=== PATIENT | female | born 1960 | race Caucasian/White ===

== ENCOUNTER → 2017-11-22 16:10 | Outpatient (CLI) | payer OTHER, MEDICAID, SELFPAY ==
[2017-11-22 17:27] LABS: Basophils Percent Auto 1.1 % (0-2); Eosinophils Percent Auto 2.8 % (2-4); Hematocrit 37.3 % (36-46); Hemoglobin 11.7 g/dL (12.0-16.0); Lymphocytes Percent Auto 31.9 % (25-40); Mean Corpuscular HGB Conc 31.3 % (30-36); Mean Corpuscular Hemoglobin 22.9 PG (26-34); Mean Corpuscular Volume 73.1 fL (80-100); Monocytes Percent Auto 8.1 % (3-14); Neutrophils Absolute Auto 4400 /uL (3000-5900); Neutrophils Percent Auto 56.1 % (50-75); Platelet Count 358 X10^3/uL (150-400); Red Blood Cell Count 5.11 X10^6/uL (4.0-5.2); Red Cell Distribution Width 19.2 % (11.6-14.8); White Blood Cell Count 7.8 X10^3/uL (4.5-11.0)
[2017-11-22 17:31] LABS: Add Manual Diff / Slide Review SLIDE REVIEW
[2017-11-22 17:37] LABS: Alanine Aminotransferase 39 IU/L (9-52); Albumin 4.3 g/dL (3.5-5.0); Albumin Globulin Ratio 1.1 (1.0-2.8); Alkaline Phosphatase 89 U/L (38-126); Aspartate Aminotransferase 42 IU/L (14-36); BUN Creatinine Ratio 17.1 (6-22); Bilirubin Total 0.4 mg/dL (0.2-1.3); Blood Urea Nitrogen 12 mg/dL (7-17); Calcium 9.5 mg/dL (8.4-10.2); Carbon Dioxide 28 mmol/L (22-32); Chloride 99 mmol/L (98-107); Estimated Glomerular Filt Rate > 60.0 mL/min (>60); Glucose 93 mg/dL (70-100); HEMOLYSIS < 15 (0-50); Potassium 4.6 mmol/L (3.4-5.1); Sodium 141 mmol/L (137-145); Total Protein 8.3 g/dL (6.3-8.2)
[2017-11-22 18:03] LABS: Anisocytosis 1+; Microcytosis 1+
[2017-11-22 18:05] LABS: TSH w/ Reflex to FT4 3.85 uIU/mL (0.47-4.68)
== END ==
PROVIDERS: PCP Family Medicine; Visit Provider Family Medicine
DX: R53.83 Other fatigue (principal)
CPT/HCPCS: 36415; 80053; 84443; 85025

== ENCOUNTER → 2018-10-01 11:43 | Outpatient (CLI) | payer OTHER, MEDICAID, SELFPAY ==
--- NOTE | 2018-10-01 11:49 | DI.RAD.S_ITS ---
PROCEDURE: XR CHEST 2V INDICATIONS: cough, black, green sputum TECHNIQUE: 2 views of the chest were acquired. COMPARISON: [facility], CHEST 2 VIEW, 07/20/2017, 12:09. [facility], , CHEST 2 VIEW, 07/15/2009, 10:40. FINDINGS: Surgical changes and devices: None. Lungs and pleura: Lungs are clear. No pleural effusions or pneumothorax. Mediastinum: Mediastinal contours are normal. Heart size is normal. Bones and chest wall: No suspicious bony abnormalities. Soft tissues appear unremarkable. IMPRESSION: Normal for age, source of current cough symptoms is not seen. Dictated by: Shivam Hernandez M.D. on 10/01/2018 at 12:44 Approved by: Shivam Hernandez M.D. on 10/01/2018 at 12:44
[2018-10-01 12:57] LABS: Hematocrit 36.7 % (36-46); Hemoglobin 10.9 g/dL (12.0-16.0); Mean Corpuscular HGB Conc 29.7 % (30-36); Mean Corpuscular Hemoglobin 19.2 PG (26-34); Mean Corpuscular Volume 64.5 fL (80-100); Platelet Count 345 X10^3/uL (150-400); Red Blood Cell Count 5.69 X10^6/uL (4.0-5.2); Red Cell Distribution Width 19.2 % (11.6-14.8); White Blood Cell Count 5.6 X10^3/uL (4.5-11.0)
== END ==
PROVIDERS: PCP Family Medicine; Visit Provider Nurse Practitioner Family
DX: R05 Cough (principal); D50.0 Iron deficiency anemia secondary to blood loss (chronic)
CPT/HCPCS: 36415; 71046; 85027

== ENCOUNTER → 2018-10-29 12:47 | Outpatient (CLI) | payer OTHER, MEDICAID, SELFPAY ==
[2018-10-29 13:49] LABS: Add Manual Diff / Slide Review NO; Basophils Absolute Auto 100 /uL (0-100); Basophils Percent Auto 1.5 % (0-2); Eosinophils Absolute Auto 100 /uL (0-450); Hematocrit 35.4 % (36-46); Lymphocytes Absolute Auto 1500 /uL (1100-4500); Lymphocytes Percent Auto 29.8 % (25-40); Mean Corpuscular HGB Conc 30.9 % (30-36); Mean Corpuscular Hemoglobin 20.4 PG (26-34); Mean Corpuscular Volume 65.9 fL (80-100); Monocytes Absolute Auto 500 /uL (0-900); Monocytes Percent Auto 10.1 % (3-14); Neutrophils Absolute Auto 2900 /uL (1500-7000); Neutrophils Percent Auto 56.6 % (50-75); Platelet Count 323 X10^3/uL (150-400); Red Blood Cell Count 5.37 X10^6/uL (4.0-5.2); Red Cell Distribution Width 21.8 % (11.6-14.8); White Blood Cell Count 5.1 X10^3/uL (4.5-11.0)
[2018-10-29 14:18] LABS: Anisocytosis 2+
[2018-10-29 14:19] LABS: Hypochromasia 1+; Microcytosis 1+
[2018-10-29 15:19] LABS: HEMOLYSIS < 15 (0-50); Iron 22 ug/dL (37-170)
[2018-10-29 15:30] LABS: Percent Iron Saturation 4 % (15-50); Total Iron Binding Capacity 578 ug/dL (265-497); Transferrin 540 mg/dL (206-381)
== END ==
PROVIDERS: PCP Family Medicine; Visit Provider Family Medicine
DX: D50.0 Iron deficiency anemia secondary to blood loss (chronic) (principal); I10 Essential (primary) hypertension; K92.2 Gastrointestinal hemorrhage, unspecified; Z86.19 Personal history of other infectious and parasitic diseases
CPT/HCPCS: 36415; 83540; 83550; 85025; 87902

== ENCOUNTER → 2018-12-02 12:27 | Outpatient (CLI) | payer OTHER, MEDICAID, SELFPAY | PROVIDERS: PCP Family Medicine; Visit Provider Family Medicine | DX: Z86.19 Personal history of other infectious and parasitic diseases (principal) | CPT/HCPCS: 36415; 87522 ==

== ENCOUNTER → 2018-12-30 10:19 | Outpatient (CLI) | payer OTHER, MEDICAID, SELFPAY ==
--- NOTE | 2018-12-30 | DI.US.S_ITS ---
PROCEDURE: US ABDOMEN COMPLETE INDICATIONS: HEPATITIS C TECHNIQUE: Real-time scanning was performed of the abdominal and retroperitoneal organs, with image documentation. COMPARISON: None. FINDINGS: Liver: The liver measures 16.4 cm in length and demonstrates increased echogenicity. 2 simple cysts are visualized within the liver. A 2.2 cm cyst in the right lobe and a 1.5 cm cyst in the left lobe. Gallbladder: The gallbladder is surgically absent. Biliary ducts: Intrahepatic bile ducts are non-dilated. Extrahepatic bile duct caliber measures 0.6 mm. Normal is 6-7 mm or less in diameter, or 10 mm or less post-cholecystectomy. Pancreas: Visualized portions of the pancreas are sonographically normal. Spleen: Spleen is normal in size and homogeneous in echotexture. Kidneys: Kidneys are normal in size and echotexture. Right kidney measures 11.2 cm long; left kidney measures 11.2 cm long. No hydronephrosis or nephrolithiasis. No solid masses. Aorta: Visualized aorta is normal in caliber at less than 3 cm. Iliacs: Proximal common iliac arteries are normal in caliber at less than 2.5 cm. IVC: Intrahepatic inferior vena cava is patent. Miscellaneous: No free abdominal fluid. IMPRESSION: 1. Increased hepatic echogenicity suggesting either steatosis or early cirrhotic transformation. No suspicious hepatic lesions; however the increased hepatic echogenicity somewhat limits evaluation of the parenchyma. Dictated by: Julia Cantrell M.D. on 12/31/2018 at 12:50 Approved by: Julia Cantrell M.D. on 12/31/2018 at 12:52
== END ==
PROVIDERS: PCP Family Medicine; Visit Provider Physician Assistant
DX: B19.20 Unspecified viral hepatitis C without hepatic coma (principal); Z90.49 Acquired absence of other specified parts of digestive tract
CPT/HCPCS: 76700

== ENCOUNTER → 2019-02-10 10:45 | Outpatient (CLI) | payer OTHER, MEDICAID, SELFPAY ==
[2019-02-10 12:01] LABS: Add Manual Diff / Slide Review NO; Basophils Absolute Auto 100 /uL (0-100); Basophils Percent Auto 1.3 % (0-2); Eosinophils Absolute Auto 100 /uL (0-450); Eosinophils Percent Auto 2.5 % (2-4); Hematocrit 49.8 % (36-46); Lymphocytes Absolute Auto 1600 /uL (1100-4500); Lymphocytes Percent Auto 33.5 % (25-40); Mean Corpuscular HGB Conc 34.1 % (30-36); Mean Corpuscular Hemoglobin 30.6 PG (26-34); Mean Corpuscular Volume 89.6 fL (80-100); Monocytes Absolute Auto 500 /uL (0-900); Monocytes Percent Auto 11.3 % (3-14); Neutrophils Absolute Auto 2500 /uL (1500-7000); Neutrophils Percent Auto 51.4 % (50-75); Platelet Count 220 X10^3/uL (150-400); Red Blood Cell Count 5.55 X10^6/uL (4.0-5.2); Red Cell Distribution Width 14.6 % (11.6-14.8); White Blood Cell Count 4.8 X10^3/uL (4.5-11.0)
[2019-02-10 12:23] LABS: HEMOLYSIS < 15 (0-50); Iron 171 ug/dL (37-170)
[2019-02-10 12:35] LABS: Percent Iron Saturation 34 % (15-50); Total Iron Binding Capacity 499 ug/dL (265-497); Transferrin 389 mg/dL (206-381)
[2019-02-10 12:58] LABS: Ferritin 64.3 ng/mL (11.1-264)
== END ==
PROVIDERS: PCP Family Medicine; Visit Provider Physician Assistant
DX: D50.0 Iron deficiency anemia secondary to blood loss (chronic) (principal); B19.20 Unspecified viral hepatitis C without hepatic coma
CPT/HCPCS: 36415; 82728; 83540; 83550; 85025

== ENCOUNTER 2019-06-04 12:08 | Emergency (ER) | payer OTHER, MEDICAID, SELFPAY ==
[2019-06-04 12:10] VITALS: BP 165/94; PULSE 91; RESP 22; TEMP 36.9; O2SAT 97
--- NOTE | 2019-06-04 12:21 | DI.RAD.S_ITS ---
PROCEDURE: XR CHEST 1V INDICATIONS: chest pain TECHNIQUE: One view of the chest was acquired. COMPARISON: [facility], CR, XR CHEST 2V, 10/01/2018, 11:54. FINDINGS: Surgical changes and devices: None. Lungs and pleura: Lungs are clear. Aeration of the lungs is similar to the prior study. No pleural effusions or pneumothorax. Mediastinum: Mediastinal contours appear normal. Heart size is normal. There is aortic atherosclerosis. Bones and chest wall: No suspicious bony lesions. Overlying soft tissues appear unremarkable. IMPRESSION: Stable chest. No acute cardiopulmonary process is evident. Dictated by: Janes Ng M.D. on 06/04/2019 at 12:01 Approved by: Janes Ng M.D. on 06/04/2019 at 12:04
--- NOTE | 2019-06-04 12:26 | PC.NURSE ---
pt c/o high bp, was told to come to er for the past week by primary md, but has not had a ride. pt also suppose to be starting high bp medications. pt started having chest pain to right chest about 2 weeks ago.
[2019-06-04 12:30] VITALS: BP 152/88; PULSE 86; RESP 20; O2SAT 98
[2019-06-04 12:31] LABS: Add Manual Diff / Slide Review NO; Basophils Absolute Auto 100 /uL (0-100); Basophils Percent Auto 1.1 % (0-2); Eosinophils Absolute Auto 200 /uL (0-450); Eosinophils Percent Auto 2.3 % (2-4); Hematocrit 45.4 % (36-46); Hemoglobin 16.2 g/dL (12.0-16.0); Lymphocytes Absolute Auto 2300 /uL (1100-4500); Mean Corpuscular HGB Conc 35.8 % (30-36); Mean Corpuscular Hemoglobin 32.6 PG (26-34); Mean Corpuscular Volume 91.2 fL (80-100); Monocytes Absolute Auto 400 /uL (0-900); Monocytes Percent Auto 5.9 % (3-14); Neutrophils Absolute Auto 4300 /uL (1500-7000); Neutrophils Percent Auto 58.7 % (50-75); Platelet Count 251 X10^3/uL (150-400); Red Blood Cell Count 4.98 X10^6/uL (4.0-5.2); White Blood Cell Count 7.3 X10^3/uL (4.5-11.0)
[2019-06-04 12:33] LABS: INR 1.1 (0.9-1.3); Prothrombin Time 12.6 SECONDS (10.1-12.7)
[2019-06-04 12:35] LABS: PTT Partial Thromboplastin Tim 40 SECONDS (26.4-36.2)
[2019-06-04 12:41] LABS: Alanine Aminotransferase 27 IU/L (<35); Albumin Globulin Ratio 1.1 (1.0-2.8); Alkaline Phosphatase 97 U/L (38-126); Aspartate Aminotransferase 43 IU/L (14-36); BUN Creatinine Ratio 13.3 (6-22); Bilirubin Total 0.8 mg/dL (0.2-1.3); Blood Urea Nitrogen 8 mg/dL (7-17); Calcium 9.9 mg/dL (8.4-10.2); Carbon Dioxide 29 mmol/L (22-32); Chloride 102 mmol/L (98-107); Creatine Kinase 32 U/L (30-135); Estimated Glomerular Filt Rate > 60.0 mL/min (>60); Globulin 4.6 g/dL (1.7-4.1); Glucose 109 mg/dL (80-110); HEMOLYSIS < 15 (0-50); Lipase 90 U/L (23-300); Potassium 3.2 mmol/L (3.4-5.1); Sodium 144 mmol/L (137-145); Total Protein 9.6 g/dL (6.3-8.2)
--- NOTE | 2019-06-04 12:49 | ED_ITS ---
HPI - Chest Pain General Chief Complaint: Chest Pain Stated Complaint: high blood pressure,chest pain, head aches Time Seen by Provider: 06/04/19 12:16 Source: patient Mode of arrival: Ambulatory Limitations: no limitations History of Present Illness HPI narrative: Patient comes emergency department complaining of headache and elevated blood pressure, as well as right-sided chest pain. She states that the symptoms have been going on on and off for about the last week, and that her blood pressure has been elevated over the last month. She states she never had elevated blood pressure before. She has seen both her primary care physician today and her GI specialist a couple of weeks ago and both are aware of the blood pressure issue. She states she has not been started on anything for her blood pressures an outpatient this time. Patient states that she is not currently actively trying to stop smoking. She denies any recent illness. She has been on treatment for the last month for hepatitis, and is having daily bouts of diarrhea with this. As such, she has lost about 12 lb. However, she states that otherwise, she has not been uncomfortable treatment. Patient denies any other complaints at this time. She states deep breath, coughing, or movement make her chest pain worse. Related Data Home Medications Medication Instructions Recorded Confirmed multivitamin 1 tab PO DAILY 12/02/18 06/04/19 cimetidine 200 mg tablet 400 mg PO BEDTIME tab 06/04/19 06/04/19 clonazepam 0.5 - 1 mg PO BEDTIME 06/04/19 06/04/19 milnacipran [Savella] 50 mg PO DAILY 06/04/19 06/04/19 nortriptyline 50 mg PO DAILY 06/04/19 ranitidine HCl 150 mg PO DAILY 06/04/19 06/04/19 trazodone 300 mg PO BEDTIME 06/04/19 06/04/19 vitamin B comp and C no.3 15 mg-10 1 cap PO DAILY 06/04/19 06/04/19 mg-50 mg-5 mg-300 mg capsule Previous Rx's Medication Instructions Recorded Incontinence Supplies See Rx Instructions NOT APPLICABLE 01/11/18 PRN PRN #130 each omeprazole 20 mg capsule,delayed 20 mg PO DAILY #90 cap 10/29/18 release estradiol 1 mg tablet 1 mg PO DAILY #90 tab 02/14/19 ferrous sulfate 325 mg (65 mg 325 mg PO BID #60 tab 02/14/19 iron) tablet promethazine 25 mg tablet 25 mg PO DAILY PRN #30 tab 04/23/19 metoprolol succinate 50 mg PO DAILY #30 each 06/04/19 Allergies Allergy/AdvReac Type Severity Reaction Status Date / Time Penicillins Allergy Intermediate RASH Verified 06/04/19 11:50 ketorolac Allergy Unknown Verified 06/04/19 11:50 Review of Systems Review of Systems ROS Unobtainable: All systems reviewed & are unremarkable except as noted in HPI and below Constitutional Constitutional: Denies chills, Denies fatigue, Denies fever(s), Denies frequent falls, Reports headache(s), Denies lethargy and Denies weakness Eyes Eyes: Denies change in vision, Denies eye discharge, Denies irritation and Denies loss of vision ENT Ears, Nose, Mouth, and Throat: Denies change in voice, Denies dizziness, Reports headache(s), Denies neck pain, Denies sore throat and Denies throat swelling Cardiovascular Cardiovascular: Reports chest pain, Denies irregular heart rhythm, Denies lightheadedness, Denies palpitations, Denies dyspnea, Denies dyspnea on exertion and Denies orthopnea Respiratory Respiratory: Denies cough, Denies dyspnea, Denies dyspnea on exertion and Denies wheezing Gastrointestinal Gastrointestinal: Denies abdominal pain, Denies change in bowel habits, Denies diarrhea, Denies nausea and Denies vomiting Genitourinary Genitourinary: Denies hematuria, Denies flank pain, Denies urinary incontinence and Denies urinary urgency Musculoskeletal Musculoskeletal: Denies back pain, Denies muscle weakness, Denies neck pain, Denies numbness and Denies tingling Integumentary/Breasts Skin/Breast: Denies pruritus, Denies erythema, Denies rash and Denies wounds Neurologic Neurologic: Denies behavioral changes, Denies confusion, Denies dizziness, Denies frequent falls, Reports headache(s), Denies loss of vision, Denies numbness, Denies tingling and Denies weakness Psychiatric Psychiatric: Denies anxiety, Denies behavioral changes, Denies confusion, Denies depression, Denies homicidal ideation and Denies suicidal ideation Endocrine Endocrine: Denies fatigue, Denies flushing and Denies palpitations Hematologic/Lymphatic Hematologic/Lymphatic: Denies easy bruising Allergic/Immunologic Allergic/Immunologic: Denies urticaria, Denies throat swelling and Denies wheezing Patient History Medical History Adenomatous colon polyp (Acute ~07/2017) Anemia (Resolved Unknown) Anxiety (Chronic Unknown) Chronic pain syndrome (Chronic Unknown) Conversion disorder (Chronic Unknown) Depression (Chronic Unknown) Diaphragmatic hernia (Resolved Unknown) Fibromyalgia (Chronic Unknown) GERD (gastroesophageal reflux disease) (Chronic Unknown) Hepatitis C (Chronic Unknown) Hypertension (Chronic Unknown) Meningitis (Resolved 1994) Post traumatic stress disorder (PTSD) (Chronic Unknown) Smoker (Chronic) Surgical History S/P total abdominal hysterectomy and bilateral salpingo-oophorectomy (1991) Status post appendectomy (1975) Status post cholecystectomy (1998) Family History Mother Cancer Social History Smoking Status: Current some day smoker second hand exposure: Yes alcohol intake: never substance use type: does not use Smoking Status: Current some day smoker Substance Use Type: marijuana Exam Initial Vital Signs Initial Vital Signs: Vital Signs Temperature 98.4 F 06/04/19 12:10 Pulse Rate 91 H 06/04/19 12:10 Respiratory Rate 22 06/04/19 12:10 Blood Pressure 165/94 H 06/04/19 12:10 Pulse Oximetry 97 06/04/19 12:10 Const General: cooperative and well developed Nutritional Appearance: well nourished Orientation: alert, awake, oriented x3 and not confused Other: Patient smells very strongly of tobacco smoke. [facility] Head: normocephalic and atraumatic Ears: external ears normal Nose: external nose normal and No nasal discharge Face and sinus: face symmetric and No dry mucous membranes Mouth: oral mucosae normal and moist mucous membranes Teeth and gingiva: dentition normal Eyes General: appearance normal, both eyes and all related structures Eyelids: eyelids normal Conjunctivae: conjunctivae normal Sclera: sclerae normal Pupils: PERRL EOM: EOM intact bilaterally Neck Neck: normal visual inspection, trachea midline, No lymphadenopathy, No midline deformity and No JVD Lymphatic: No lymphedema Chest Chest: normal inspection of the chest Resp Effort & Inspection: normal respiratory effort, able to speak in complete sentences, no respiratory distress and no use of accessory muscles Auscultation: clear to auscultation bilaterally, no rales, no rhonchi and no wheezes Cardio Rate: regular rate Rhythm: regular rhythm Heart Sounds: no click, no gallops, no murmurs and no rubs Pulses: normal peripheral pulses GI Inspection: non-distended Palpation: soft, no hepatosplenomegaly, No guarding, No pulsatile mass and No tender Back/Spine/Pelvis Back: No CVA tenderness Cervical Spine: cervical ROM normal and No pain with cervical ROM Thoracic/Lumbar Spine: thoracic and lumbar spine normal to inspection Skin General: no rashes or lesions noted, No jaundice and No petechiae Neuro General: alert, oriented x3, gait normal and no focal motor deficits Speech: speech normal Extrem General: full ROM, no clubbing, cyanosis or edema, no pedal edema and no calf tenderness Psych Appearance: well kempt Mental Status: mental status grossly normal Attitude: cooperative Thought Content: normal and suicidality Judgment: judgment good Course Course Course Narrative: Patient was worked up with labs, EKG, and chest x-ray. She was treated with metoprolol and a small dose of morphine in the emergency department. Workup was unremarkable. Patient was found to be feeling better after treatment and her blood pressure was normal. I've discussed with her the importance of following up and of taking medication for her blood pressure. We have also discussed the usual indications for return. Patient will be prescribed metoprolol as an outpatient. She is advised to call her primary care physician's office as soon as possible to set up an appointment for follow-up. Orders Ordered: Discontinued Medications Metoprolol Succinate (Toprol Xl) 50 mg PO NOW ONE Stop: 06/04/19 12:46 Last Admin: 06/04/19 12:58 Dose: 50 mg Documented by: SCANAPO Morphine Sulfate (Morphine) 2 mg IV NOW ONE Stop: 06/04/19 12:46 Last Admin: 06/04/19 12:55 Dose: 2 mg Documented by: SCANAPO Vital Signs Vital signs: Vital Signs - 8 hr 06/04/19 12:10 Temperature 98.4 F Pulse Rate 91 H Respiratory Rate 22 Blood Pressure 165/94 H Pulse Oximetry 97 MDM - Chest Pain Medical Records Data Attestation: I reviewed the patient's medical records. Lab Data Attestation: I reviewed the patient's lab results. Result diagrams: 06/04/19 12:18 06/04/19 12:18 Labs: Lab Results 06/04/19 06/04/19 06/04/19 Range/Units 12:18 12:18 12:18 WBC 7.3 (4.5-11.0) X10^3/uL RBC 4.98 (4.0-5.2) X10^6/uL Hgb 16.2 H (12.0-16.0) g/dL Hct 45.4 (36-46) % MCV 91.2 (80-100) fL MCH 32.6 (26-34) PG MCHC 35.8 (30-36) % RDW 12.0 (11.6-14.8) % Plt Count 251 (150-400) X10^3/uL Neut % (Auto) 58.7 (50-75) % Lymph % (Auto) 32.0 (25-40) % Cross % (Auto) 5.9 (3-14) % Eos % (Auto) 2.3 (2-4) % Baso % (Auto) 1.1 (0-2) % Neut # (Auto) 4300 (9106-4479) /uL Lymph # (Auto) 2300 (4201-0246) /uL Cross # (Auto) 400 (0-900) /uL Eos # (Auto) 200 (0-450) /uL Baso # (Auto) 100 (0-100) /uL PT 12.6 (10.1-12.7) SECONDS INR 1.1 (0.9-1.3) APTT 40 H (26.4-36.2) SECONDS Sodium 144 (137-145) mmol/L Potassium 3.2 L (3.4-5.1) mmol/L Chloride 102 (98-107) mmol/L Carbon Dioxide 29 (22-32) mmol/L BUN 8 (7-17) mg/dL Creatinine 0.60 (0.52-1.04) mg/dL Estimated GFR > 60.0 (>60) mL/min BUN/Creatinine Ratio 13.3 (6-22) Glucose 109 (80-110) mg/dL Calcium 9.9 (8.4-10.2) mg/dL Total Bilirubin 0.8 (0.2-1.3) mg/dL AST 43 H (14-36) IU/L ALT 27 (<35) IU/L Alkaline Phosphatase 97 (38-126) U/L Total Creatine Kinase 32 (30-135) U/L CK-MB (CK-2) TNP CK-MB (CK-2) Rel Index TNP Troponin I < 0.012 (0.01-0.034) ng/mL Total Protein 9.6 H (6.3-8.2) g/dL Albumin 5.0 (3.5-5.0) g/dL Globulin 4.6 H (1.7-4.1) g/dL Albumin/Globulin Ratio 1.1 (1.0-2.8) Lipase 90 (23-300) U/L Imaging Data Chest x-ray: Radiologist's impression: PROCEDURE: XR CHEST 1V INDICATIONS: chest pain TECHNIQUE: One view of the chest was acquired. COMPARISON: [facility], , XR CHEST 2V, 10/01/2018, 11:54. FINDINGS: Surgical changes and devices: None. Lungs and pleura: Lungs are clear. Aeration of the lungs is similar to the prior study. No pleural effusions or pneumothorax. Mediastinum: Mediastinal contours appear normal. Heart size is normal. There is aortic atherosclerosis. Bones and chest wall: No suspicious bony lesions. Overlying soft tissues appear unremarkable. IMPRESSION: Stable chest. No acute cardiopulmonary process is evident. Dictated by: Janes Ng M.D. on 06/04/2019 at 12:01 Approved by: Janes Ng M.D. on 06/04/2019 at 12:04 ECG Data Attestation: I personally reviewed and interpreted this ECG as follows: (See be low) Interpretation: Twelve lead EKG performed June 04, 2019 at 12:54 p.m., as follows: Regular ventricular rhythm with a rate of 84 beats per minute NM intervals 173 milliseconds QRS duration 86 millisecond QTC interval 430 milliseconds Discharge Plan Departure Patient Disposition: Home Clinical Impression: Essential hypertension Discharge Date/Time: 06/04/19 14:09 Instructions: DI for High Blood Pressure Activity Restrictions/Additional Instructions: Your labs look good. It is very important that you follow-up with your doctor regarding your high blood pressure. For now, please start the medication that has been prescribed for you, and talk to your doctor about a plan to quit smoking. Please also talk to your GI specialist about the liver medication your on to see if this could possibly be responsible for your high blood pressure. Your prescription has been electronically transmitted to [facility] in [place]. Prescriptions: New metoprolol succinate 50 mg capsule,sprinkle,ER 24hr 50 mg PO DAILY Qty: 30 RF: 0 No Action Incontinence Supplies See Rx Instructions Not Applicable PRN PRN (Reason: incontinence) Qty: 130 RF: 0 estradiol 1 mg tablet 1 mg PO DAILY Qty: 90 RF: 0 ferrous sulfate 325 mg (65 mg iron) tablet 325 mg PO BID Qty: 60 RF: 2 promethazine 25 mg tablet 25 mg PO DAILY PRN (Reason: nausea and vomiting) Qty: 30 RF: 2 omeprazole 20 mg capsule,delayed release(DR/EC) 20 mg PO DAILY Qty: 90 RF: 3 multivitamin tablet 1 tab PO DAILY RF: 0 B Complex Plus Vitamin C 40-93-11-5-300 mg capsule 1 cap PO DAILY RF: 0 cimetidine [Tagamet HB] 200 mg tablet 400 mg PO BEDTIME RF: 0 ranitidine HCl 150 mg tablet 150 mg PO DAILY RF: 0 nortriptyline 50 mg capsule 50 mg PO DAILY RF: 0 Savella 50 mg tablet 50 mg PO DAILY RF: 0 clonazepam 0.5 mg tablet 0.5 - 1 mg PO BEDTIME RF: 0 trazodone 300 mg tablet 300 mg PO BEDTIME RF: 0 Referrals: Desiree Gilman, [Primary Care Provider] -
[2019-06-04 12:52] LABS: Troponin I < 0.012 ng/mL (0.01-0.034)
[2019-06-04] MEDS: MORPHINE 2 MG/ML INJ IV (12:55)
[2019-06-04] MEDS: METOPROLOL ER 50 MG TABLET PO (12:58)
[2019-06-04 13:00] VITALS: BP 132/90; PULSE 82; RESP 15; O2SAT 97
[2019-06-04 13:22] VITALS: BP 132/90; PULSE 83
[2019-06-04 13:33] VITALS: BP 135/76; PULSE 81; RESP 16; O2SAT 100
== END 2019-06-04 14:09 | disposition home or self-care (01) ==
PROVIDERS: Emergency Provider Emergency Medicine; PCP Family Medicine
DX: I10 Essential (primary) hypertension (principal)
CPT/HCPCS: 36415; 71045; 80053; 82550; 83690; 84484; 85025; 85610; 85730; 93005; 93010; 96374; 99284; 99285; J2270

== ENCOUNTER → 2019-06-19 10:25 | Outpatient (CLI) | payer OTHER, MEDICAID, SELFPAY ==
--- NOTE | 2019-06-19 | DI.US.S_ITS ---
PROCEDURE: US ABDOMEN LIMITED INDICATIONS: UNSPECIFIED VIRAL HEP C W/O HEPATIC COMA TECHNIQUE: Real-time scanning was performed of the abdominal and retroperitoneal organs, with image documentation. COMPARISON: [facility], CT, ABDOMEN/PELVIS WITH CONTRAST, 07/09/2009, 16:28. [facility], US, US ABDOMEN COMPLETE, 12/30/2018, 10:54. FINDINGS: Liver: Liver is normal in size. Multifocal areas of hypoechogenicity are identified measuring 14 x 20 x 15 mm and 20 x 19 x 23 mm. Gallbladder: Gallbladder has been removed. Biliary ducts: Intrahepatic bile ducts are non-dilated. Extrahepatic bile duct caliber measures 6.7 mm. Normal is 6-7 mm or less in diameter, or 10 mm or less post-cholecystectomy. Pancreas: Visualized portions of the pancreas are sonographically normal. Visualized portion of the pancreatic duct appears minimally prominent. However this appears relatively unchanged compared to 12/30/18. IMPRESSION: 1. Hepatic cysts. 2. Partially visualized pancreatic duct appears minimally prominent, unchanged. Recommend correlation to laboratory values. Dictated by: Andra Monroy M.D. on 06/19/2019 at 17:43 Approved by: Andra Monroy M.D. on 06/19/2019 at 17:45
== END ==
PROVIDERS: Family Provider Family Medicine; PCP Family Medicine; Visit Provider Physician Assistant
DX: B19.20 Unspecified viral hepatitis C without hepatic coma (principal); K76.89 Other specified diseases of liver; Z90.49 Acquired absence of other specified parts of digestive tract
CPT/HCPCS: 76705

== ENCOUNTER → 2019-07-30 11:49 | Outpatient (CLI) | payer OTHER, MEDICAID, SELFPAY ==
--- NOTE | 2019-07-30 11:51 | DI.RAD.S_ITS ---
PROCEDURE: XR CERVICAL SPINE 2V OR 3V INDICATIONS: Neck pain TECHNIQUE: 3 view(s) of the cervical spine were acquired. COMPARISON: None. FINDINGS: Bones: No fractures or dislocations to the C7 level. The lateral masses of C1 appear intact on the odontoid view. No suspicious bony lesions. Multilevel degenerative endplate sclerosis and spurring. Diffuse facet arthropathy. No definite disc space narrowing. Minimal levocurvature Soft tissues: No prevertebral soft tissue swelling. IMPRESSION: Minimal cervical spondylosis and levocurvature Dictated by: Abhinav Renae M.D. on 07/30/2019 at 16:33 Approved by: Abhinav Renae M.D. on 07/30/2019 at 16:34
== END ==
PROVIDERS: Family Provider Student in an Organized Health Care Education/Training Program; PCP Student in an Organized Health Care Education/Training Program; Referring Provider Student in an Organized Health Care Education/Training Program; Visit Provider Student in an Organized Health Care Education/Training Program
DX: M54.2 Cervicalgia (principal)
CPT/HCPCS: 72040

== ENCOUNTER → 2019-09-12 14:37 | Outpatient (CLI) | payer OTHER, MEDICAID, SELFPAY ==
[2019-09-12 18:15] LABS: Influenza A - CEPHEID Flu A NEGATIVE (NEGATIVE); Influenza B - CEPHEID Flu B NEGATIVE (NEGATIVE)
[2019-09-14 05:38] LABS: COVID19 Sendout Not Detected (Not Detected)
== END ==
PROVIDERS: Family Provider Student in an Organized Health Care Education/Training Program; PCP Student in an Organized Health Care Education/Training Program; Visit Provider Family Medicine
DX: R69 Illness, unspecified (principal)
CPT/HCPCS: 87502; 87635

== ENCOUNTER → 2019-09-12 14:40 | Outpatient (CLI) | payer OTHER, MEDICAID, SELFPAY ==
--- NOTE | 2019-09-12 14:43 | DI.RAD.S_ITS ---
PROCEDURE: XR CHEST 2V INDICATIONS: cough, fever, not improving after 1 week of abx TECHNIQUE: 2 views of the chest were acquired. COMPARISON: [facility], CR, XR CHEST 1V, 06/04/2019, 12:27. FINDINGS: Surgical changes and devices: Right upper quadrant clips. Lungs and pleura: Scattered subsegmental atelectasis and/or scarring. No focal consolidation. No pleural effusions or pneumothorax. Mediastinum: Mediastinal contours are normal. Heart size is normal. Bones and chest wall: No suspicious bony abnormalities. Soft tissues appear unremarkable. IMPRESSION: No acute consolidation Dictated by: Abhinav Renae M.D. on 09/12/2019 at 15:16 Approved by: Abhinav Renae M.D. on 09/12/2019 at 15:23
== END ==
PROVIDERS: Family Provider Student in an Organized Health Care Education/Training Program; PCP Student in an Organized Health Care Education/Training Program; Referring Provider Family Medicine; Visit Provider Family Medicine
DX: R05 Cough (principal); R50.9 Fever, unspecified; R69 Illness, unspecified
CPT/HCPCS: 71046; 87502; 87635

== ENCOUNTER → 2020-02-18 11:51 | Outpatient (CLI) | payer OTHER, MEDICAID, SELFPAY ==
[2020-02-18 12:21] LABS: Alanine Aminotransferase 9 IU/L (<35); Albumin 4.6 g/dL (3.5-5.0); Albumin Globulin Ratio 1.2 (1.0-2.8); Alkaline Phosphatase 66 U/L (38-126); Aspartate Aminotransferase 20 IU/L (14-36); BUN Creatinine Ratio 15.2 (6-22); Bilirubin Total 0.4 mg/dL (0.2-1.3); Blood Urea Nitrogen 10 mg/dL (7-17); Calcium 9.4 mg/dL (8.4-10.2); Carbon Dioxide 29 mmol/L (22-32); Chloride 103 mmol/L (98-107); Estimated Glomerular Filt Rate > 60.0 mL/min (>60); Glucose 96 mg/dL (80-110); HEMOLYSIS < 15 (0-50); Potassium 3.8 mmol/L (3.4-5.1); Sodium 141 mmol/L (137-145); Total Protein 8.6 g/dL (6.3-8.2)
== END ==
PROVIDERS: Family Provider Student in an Organized Health Care Education/Training Program; PCP Student in an Organized Health Care Education/Training Program; Referring Provider Student in an Organized Health Care Education/Training Program; Visit Provider Student in an Organized Health Care Education/Training Program
DX: B19.20 Unspecified viral hepatitis C without hepatic coma (principal); N14.1 Nephropathy induced by other drugs, medicaments and biological substances; T50.8X5A Adverse effect of diagnostic agents, initial encounter
CPT/HCPCS: 36415; 80053

== ENCOUNTER → 2020-03-02 10:58 | Outpatient (CLI) | payer OTHER, MEDICAID, SELFPAY ==
--- NOTE | 2020-03-02 11:16 | DI.MG.S_ITS ---
Patient Name: LISS LAI date: 1960 Sex: F Attending Physician: Reva Indications: Date: 03/02/2020 11:07 At the request of: JEAN BUSTOS Procedure: MM screening mammo BI BILATERAL DIGITAL SCREENING MAMMOGRAM 3D/2D WITH CAD: 03/02/2020 CLINICAL: Routine screening. Comparison is made to exams dated: 03/09/2017 mammogram, 02/02/2015 mammogram, 12/02/2013 mammogram, and 02/17/2011 mammogram - [facility]. There are scattered fibroglandular elements in both breasts. Current study was also evaluated with a Computer Aided Detection (CAD) system. No significant masses, calcifications, or other findings are seen in either breast. There has been no significant interval change. IMPRESSION: NEGATIVE There is no mammographic evidence of malignancy. A 1 year screening mammogram is recommended. This exam was interpreted at Station ID: [id number]. NOTE: For mammograms, a report in lay terms will be sent to the patient. Approximately 15% of breast malignancies will not be visualized mammographically. In the management of a palpable breast mass, a negative mammogram must not discourage biopsy of a clinically suspicious lesion. Electronically Signed By: Clement desai/che:03/02/2020 17:47:46 letter sent: Normal Exam ACR BI-RADS Category 1: Negative [id number]
--- NOTE | 2020-03-02 11:28 | DI.CT.S_ITS ---
PROCEDURE: CT ANGIO UE LT INDICATIONS: Left arm pain TECHNIQUE: After the administration of intravenous contrast, 2.5 mm sections acquired from the aortic arch through the symptomatic arm, with optional delayed image acquisition from the elbows to the fingers. 3-dimensional maximum intensity projection (MIP) coronal and sagital reformats, and/or 3-dimensional volume rendering reformatting was then performed. For radiation dose reduction, the following was used: automated exposure control. COMPARISON: None. FINDINGS: Image quality: Excellent. The bones appear intact. No focal osseous destruction identified. There is mild skin thickening overlying the tip of the olecranon . However this finding technically nonspecific. The remaining subcutaneous soft tissues appear grossly intact. The muscles appear unremarkable. The vessels appear contrast opacified and grossly unremarkable to the level of the distal radial and ulnar arteries. No soft tissue gas is seen. No abscess identified. IMPRESSION: Overall, grossly unremarkable examination. Mild skin thickening over the tip of the olecranon however this could be chronic. Please correlate clinically Dictated by: Abhinav Renae M.D. on 03/02/2020 at 13:43 Approved by: Abhinav Renae M.D. on 03/02/2020 at 13:50
== END ==
PROVIDERS: Family Provider Student in an Organized Health Care Education/Training Program; PCP Student in an Organized Health Care Education/Training Program; Referring Provider Student in an Organized Health Care Education/Training Program; Visit Provider Student in an Organized Health Care Education/Training Program
DX: Z12.31 Encounter for screening mammogram for malignant neoplasm of breast (principal); M79.602 Pain in left arm
CPT/HCPCS: 73206; 77063; 77067; Q9967

== ENCOUNTER → 2020-04-01 12:17 | Outpatient (CLI) | payer OTHER, MEDICAID, SELFPAY ==
[2020-04-01 14:19] LABS: Add Manual Diff / Slide Review NO; Basophils Absolute Auto 100 /uL (0-100); Basophils Percent Auto 0.9 % (0-2); Eosinophils Absolute Auto 100 /uL (0-450); Eosinophils Percent Auto 1.3 % (2-4); Hematocrit 45.3 % (36-46); Hemoglobin 15.5 g/dL (12.0-16.0); Lymphocytes Absolute Auto 2200 /uL (1100-4500); Lymphocytes Percent Auto 28.1 % (25-40); Mean Corpuscular HGB Conc 34.3 % (30-36); Mean Corpuscular Hemoglobin 29.3 PG (26-34); Mean Corpuscular Volume 85.4 fL (80-100); Monocytes Absolute Auto 500 /uL (0-900); Monocytes Percent Auto 6.7 % (3-14); Neutrophils Absolute Auto 4800 /uL (1500-7000); Platelet Count 306 X10^3/uL (150-400); Red Cell Distribution Width 13.7 % (11.6-14.8); White Blood Cell Count 7.7 X10^3/uL (4.5-11.0)
[2020-04-01 14:33] LABS: Alanine Aminotransferase 11 IU/L (<35); Albumin 4.8 g/dL (3.5-5.0); Albumin Globulin Ratio 1.3 (1.0-2.8); Alkaline Phosphatase 74 U/L (38-126); Aspartate Aminotransferase 31 IU/L (14-36); BUN Creatinine Ratio 19.6 (6-22); Bilirubin Total 0.8 mg/dL (0.2-1.3); Blood Urea Nitrogen 10 mg/dL (7-17); Calcium 7.8 mg/dL (8.4-10.2); Carbon Dioxide 28 mmol/L (22-32); Chloride 102 mmol/L (98-107); Estimated Glomerular Filt Rate > 60.0 mL/min (>60); Globulin 3.8 g/dL (1.7-4.1); Glucose 84 mg/dL (80-110); HEMOLYSIS 49 (0-50); Potassium 3.2 mmol/L (3.4-5.1); Sodium 142 mmol/L (137-145); Total Protein 8.6 g/dL (6.3-8.2)
[2020-04-01 16:04] LABS: Lipase 53 U/L (23-300)
[2020-04-02 13:08] LABS: COVID19 Sendout Not Detected (Not Detect)
== END ==
PROVIDERS: Family Provider Student in an Organized Health Care Education/Training Program; PCP Student in an Organized Health Care Education/Training Program; Referring Provider Physician Assistant; Visit Provider Physician Assistant
DX: R19.7 Diarrhea, unspecified (principal); R50.9 Fever, unspecified; Z11.59 Encounter for screening for other viral diseases
CPT/HCPCS: 36415; 80053; 83690; 85025; 87635

== ENCOUNTER → 2020-04-17 11:31 | Outpatient (CLI) | payer OTHER, MEDICAID, SELFPAY | PROVIDERS: Family Provider Student in an Organized Health Care Education/Training Program; PCP Student in an Organized Health Care Education/Training Program; Referring Provider Student in an Organized Health Care Education/Training Program; Visit Provider Student in an Organized Health Care Education/Training Program | DX: R19.7 Diarrhea, unspecified (principal) | CPT/HCPCS: 87045; 87899 ==

== ENCOUNTER → 2020-09-07 13:55 | Outpatient (CLI) | payer OTHER, MEDICAID, SELFPAY ==
[2020-09-07 15:23] LABS: BUN Creatinine Ratio 13.6 (6-22); Blood Urea Nitrogen 9 mg/dL (7-17); Carbon Dioxide 28 mmol/L (22-32); Chloride 102 mmol/L (98-107); Estimated Glomerular Filt Rate > 60.0 mL/min (>60); Glucose 99 mg/dL (80-110); HEMOLYSIS < 15 (0-50); Potassium 3.6 mmol/L (3.4-5.1); Sodium 140 mmol/L (137-145)
[2020-09-07 15:26] LABS: C-Reactive Protein Quant < 0.5 mg/dL (<1.0)
[2020-09-07 15:49] LABS: TSH w/ Reflex to FT4 1.88 uIU/mL (0.47-4.68)
[2020-09-09 16:37] LABS: HIV 1 & 2 Ab/Ag 4th Gen Combo NEGATIVE (NEGATIVE)
== END ==
PROVIDERS: Family Provider Student in an Organized Health Care Education/Training Program; PCP Student in an Organized Health Care Education/Training Program; Referring Provider Student in an Organized Health Care Education/Training Program; Visit Provider Student in an Organized Health Care Education/Training Program
DX: K52.9 Noninfective gastroenteritis and colitis, unspecified (principal)
CPT/HCPCS: 36415; 80048; 84443; 86140; 87389

== ENCOUNTER 2021-03-07 14:08 | Emergency (ER) | payer OTHER, MEDICAID, SELFPAY ==
[2021-03-07] VITALS (10 sets, daily range): BP systolic 137–161; BP diastolic 66–93; PULSE 66–76; RESP 20–35; TEMP 36.3; O2SAT 87–100
[2021-03-07 14:38] LABS: Add Manual Diff / Slide Review NO; Basophils Absolute Auto 100 /uL (0-100); Basophils Percent Auto 0.8 % (0-2); Eosinophils Absolute Auto 0 /uL (0-450); Eosinophils Percent Auto 0.3 % (2-4); Hematocrit 45.3 % (36-46); Hemoglobin 15.1 g/dL (12.0-16.0); Lymphocytes Absolute Auto 2800 /uL (1100-4500); Lymphocytes Percent Auto 26.9 % (25-40); Mean Corpuscular HGB Conc 33.3 % (30-36); Mean Corpuscular Hemoglobin 27.2 PG (26-34); Mean Corpuscular Volume 81.9 fL (80-100); Monocytes Absolute Auto 800 /uL (0-900); Monocytes Percent Auto 7.4 % (3-14); Neutrophils Absolute Auto 6700 /uL (1500-7000); Neutrophils Percent Auto 64.6 % (50-75); Platelet Count 306 X10^3/uL (150-400); Red Blood Cell Count 5.53 X10^6/uL (4.0-5.2); Red Cell Distribution Width 14.2 % (11.6-14.8); White Blood Cell Count 10.4 X10^3/uL (4.5-11.0)
[2021-03-07] MEDS: ONDANSETRON 4 MG/2 ML INJ IV (14:38)
[2021-03-07] MEDS: SODIUM CHLORIDE 0.9% 1,000 ML 1000 ML IV (14:38)
--- NOTE | 2021-03-07 14:51 | ED.NAVMDI ---
HPI - Nausea/Vomiting/Diarrhea General Chief complaint: Nausea/Vomiting/Diarrhea Stated complaint: Faint, hot/cold, weak, hurt everywhere,vomiting Time Seen by Provider: 03/07/21 14:23 Source: patient Mode of arrival: Ambulatory History of Present Illness HPI Narrative: Patient is a 60-year-old female. Is here for evaluation of feeling both hot and cold at the same time, weak, feeling faint, fogginess in her head, and pain everywhere. Also having nausea and vomiting. Has not tried anything for symptoms prior to arrival. The symptoms been going on for the past couple days except for the diarrhea which is been going on since February. Contacted her primary doctor this morning who advised her to come to the emergency department for evaluation. Related Data Home Medications Medication Instructions Recorded Confirmed multivitamin 1 tab PO DAILY 12/02/18 09/07/20 vitamin B comp and C no.3 15 mg-10 1 cap PO DAILY 06/04/19 09/07/20 mg-50 mg-5 mg-300 mg capsule (B Complex Plus Vitamin C) Previous Rx's Medication Instructions Recorded Incontinence Supplies See Rx Instructions NOT APPLICABLE 01/11/18 PRN PRN #130 each rubber gloves #200 each 09/02/19 metoprolol succinate 50 mg 50 mg PO DAILY #90 tab 02/10/20 tablet,extended release 24 hr estradiol 1 mg tablet 1 mg PO DAILY #90 tab 08/12/20 methocarbamol 750 mg tablet 750 mg PO TID PRN #90 tab 08/12/20 trazodone 300 mg tablet 300 mg PO BEDTIME #90 tab 10/11/20 promethazine 25 mg tablet 25 mg PO DAILY PRN #30 tab 10/12/20 omeprazole 20 mg capsule,delayed 20 mg PO DAILY #90 cap 11/08/20 release duloxetine 30 mg capsule,delayed 30 mg PO DAILY #90 cap 11/16/20 release clonazepam 1 mg tablet 1 mg PO BEDTIME PRN #30 tab 03/07/21 Allergies Allergy/AdvReac Type Severity Reaction Status Date / Time Penicillins Allergy Intermediate RASH Verified 03/07/21 16:45 tizanidine Allergy Intermediate Hives Verified 03/07/21 16:45 ketorolac Allergy Unknown Verified 03/07/21 16:45 clindamycin AdvReac Severe Nausea and Verified 03/07/21 16:45 vomiting Review of Systems Review of Systems ROS Unobtainable: All systems reviewed & are unremarkable except as noted in HPI and below Constitutional Constitutional: Reports chills, Reports fatigue and Reports weakness Eyes Eyes: Reports system reviewed and no additional complaints, except as documented ENT Ears, Nose, Mouth, and Throat: Denies vertigo, Reports dizziness, Reports disequilibrium, Reports sinus pressure and Denies sore throat Cardiovascular Cardiovascular: Reports as per HPI, Reports system reviewed and no additional complaints, except as documented, Denies chest pain and Reports dyspnea (This is baseline for her) Respiratory Respiratory: Reports system reviewed and no additional complaints, except as documented, Denies cough and Reports dyspnea (This is baseline for her) Gastrointestinal Gastrointestinal: Reports system reviewed and no additional complaints, except as documented and Reports diarrhea (Not new for her) Genitourinary Genitourinary: Reports system reviewed and no additional complaints, except as documented Musculoskeletal Musculoskeletal: Reports back pain and Reports myalgias Integumentary/Breasts Skin/Breast: Reports system reviewed and no additional complaints, except as documented Neurologic Neurologic: Denies vertigo, Reports dizziness, Reports disequilibrium and Reports weakness Psychiatric Psychiatric: Reports system reviewed and no additional complaints, except as documented Endocrine Endocrine: Reports fatigue Hematologic/Lymphatic On Anticoagulants: No Allergic/Immunologic Allergic/Immunologic: Reports system reviewed and no additional complaints, except as documented Patient History Medical History (Updated 03/07/21 @ 16:33 by Ronnie Haider DO) Adenomatous colon polyp (~07/2017) Anemia (Unknown) Anxiety (Unknown) Chronic pain syndrome (Unknown) Conversion disorder (Unknown) Depression (Unknown) Diaphragmatic hernia (Unknown) Fibromyalgia (Unknown) GERD (gastroesophageal reflux disease) (Unknown) Hepatitis C (Unknown) Hypertension (Unknown) Meningitis (1994) Post traumatic stress disorder (PTSD) (Unknown) Smoker Tobacco abuse Surgical History S/P total abdominal hysterectomy and bilateral salpingo-oophorectomy (1991) Status post appendectomy (1975) Status post cholecystectomy (1998) Family History Mother Cancer Social History Smoking Status: Current every day smoker second hand exposure: Yes alcohol intake: never substance use type: does not use Smoking Status: Current every day smoker Substance Use Type: marijuana Exam Initial Vital Signs Initial Vital Signs: Vital Signs Temperature 97.4 F L 03/07/21 14:15 Pulse Rate 76 03/07/21 14:15 Respiratory Rate 22 03/07/21 14:15 Blood Pressure 146/76 H 03/07/21 14:15 Pulse Oximetry 94 03/07/21 14:15 Const General: disheveled and No ill appearing HENMT Head: normal to inspection and normocephalic Eyes General: appearance normal, both eyes and all related structures Neck Neck: normal visual inspection Chest Chest: normal inspection of the chest Resp Effort & Inspection: not labored and tachypneic Auscultation: clear to auscultation bilaterally Cardio Rate: regular rate Rhythm: regular rhythm GI Inspection: normal to inspection Palpation: soft and No tender General: bimanual renal exam normal bilaterally Back/Spine/Pelvis Back: normal to inspection Skin Lesions: no lesions Rashes: no rashes Neuro General: patient alert, patient awake and moves all extremities Cognition: normal cognition Speech: speech normal Extrem General: capillary refill normal and No edema Psych Appearance: grossly normal and well kempt Course Orders Ordered: ED Orders 03/07/21 14:30 COVID19 -Nasal swab/Pre-Proc Stat Complete Blood Count AUTO DIFF Stat Comprehensive Metabolic Panel Stat Lipase Stat NT-proBNP (BNP-Adult 18+) Stat Troponin & CK Cardiac Panel Stat 03/07/21 15:06 XR chest 1V Stat Discontinued Medications Acetaminophen (Acetaminophen 325 Mg Tablet) 650 mg PO NOW ONE Stop: 03/07/21 15:34 Last Admin: 03/07/21 15:44 Dose: 650 mg Documented by: SHONA Sodium Chloride (Normal Saline 0.9%) 1,000 mls @ 1,000 mls/hr IV BOLUS ONE Stop: 03/07/21 15:32 Last Infusion: 03/07/21 15:46 Dose: 0 mls/hr Documented by: Admin: 03/07/21 14:38 Dose: 1,000 mls/hr Documented by: ERASTO Ondansetron HCl (Ondansetron 4 Mg/2 Ml Inj) 4 mg IV NOW ONE Stop: 03/07/21 14:32 Last Admin: 03/07/21 14:38 Dose: 4 mg Documented by: KSCHERE Vital Signs Vital signs: Vital Signs - 8 hr 03/07/21 14:15 03/07/21 14:32 03/07/21 14:45 Temperature 97.4 F L Pulse Rate 76 73 69 Respiratory Rate 22 33 H 32 H Blood Pressure 146/76 H 161/85 H Pulse Oximetry 94 94 89 L 03/07/21 15:00 03/07/21 15:15 03/07/21 15:30 Temperature Pulse Rate 71 73 67 Respiratory Rate 32 H 35 H 28 H Blood Pressure 155/80 H 157/93 H 140/84 Pulse Oximetry 87 L 100 99 03/07/21 15:45 03/07/21 16:00 03/07/21 16:15 Temperature Pulse Rate 68 66 73 Respiratory Rate 22 20 21 Blood Pressure 151/83 H 137/66 139/71 Pulse Oximetry 100 100 99 03/07/21 16:30 Temperature Pulse Rate 73 Respiratory Rate 22 Blood Pressure 156/82 H Pulse Oximetry 99 MDM - Nausea/Vomiting/Diarrhea Lab Data Attestation: I reviewed the patient's lab results. Result diagrams: 03/07/21 14:30 03/07/21 14:30 Labs: Lab Results 03/07/21 03/07/21 03/07/21 Range/Units 14:30 14:30 14:30 WBC 10.4 (4.5-11.0) X10^3/uL RBC 5.53 H (4.0-5.2) X10^6/uL Hgb 15.1 (12.0-16.0) g/dL Hct 45.3 (36-46) % MCV 81.9 (80-100) fL MCH 27.2 (26-34) PG MCHC 33.3 (30-36) % RDW 14.2 (11.6-14.8) % Plt Count 306 (150-400) X10^3/uL Neut % (Auto) 64.6 (50-75) % Lymph % (Auto) 26.9 (25-40) % Patrick % (Auto) 7.4 (3-14) % Eos % (Auto) 0.3 L (2-4) % Baso % (Auto) 0.8 (0-2) % Neut # (Auto) 6700 (1594-1698) /uL Lymph # (Auto) 2800 (2514-1477) /uL Patrick # (Auto) 800 (0-900) /uL Eos # (Auto) 0 (0-450) /uL Baso # (Auto) 100 (0-100) /uL Sodium 142 (137-145) mmol/L Potassium 3.1 L (3.4-5.1) mmol/L Chloride 103 (98-107) mmol/L Carbon Dioxide 26 (22-32) mmol/L BUN 12 (7-17) mg/dL Creatinine 0.72 (0.52-1.04) mg/dL Estimated GFR > 60.0 (>60) mL/min BUN/Creatinine Ratio 16.7 (6-22) Glucose 100 (80-110) mg/dL Calcium 8.9 (8.4-10.2) mg/dL Total Bilirubin 0.7 (0.2-1.3) mg/dL AST 31 (14-36) IU/L ALT 16 (<35) IU/L Alkaline Phosphatase 73 (38-126) U/L Total Creatine Kinase 59 (30-135) U/L CK-MB (CK-2) TNP CK-MB (CK-2) Rel Index TNP Troponin I < 0.012 (0.01-0.034) ng/mL NT-Pro-B Natriuret Pep 200 H (<125) pg/mL Total Protein 9.4 H (6.3-8.2) g/dL Albumin 5.1 H (3.5-5.0) g/dL Globulin 4.3 H (1.7-4.1) g/dL Albumin/Globulin Ratio 1.2 (1.0-2.8) Lipase 83 (23-300) U/L SARS-CoV-2 (PCR) (Negative) 03/07/21 Range/Units 14:30 WBC (4.5-11.0) X10^3/uL RBC (4.0-5.2) X10^6/uL Hgb (12.0-16.0) g/dL Hct (36-46) % MCV (80-100) fL MCH (26-34) PG MCHC (30-36) % RDW (11.6-14.8) % Plt Count (150-400) X10^3/uL Neut % (Auto) (50-75) % Lymph % (Auto) (25-40) % Patrick % (Auto) (3-14) % Eos % (Auto) (2-4) % Baso % (Auto) (0-2) % Neut # (Auto) (4698-9400) /uL Lymph # (Auto) (0830-6802) /uL Patrick # (Auto) (0-900) /uL Eos # (Auto) (0-450) /uL Baso # (Auto) (0-100) /uL Sodium (137-145) mmol/L Potassium (3.4-5.1) mmol/L Chloride (98-107) mmol/L Carbon Dioxide (22-32) mmol/L BUN (7-17) mg/dL Creatinine (0.52-1.04) mg/dL Estimated GFR (>60) mL/min BUN/Creatinine Ratio (6-22) Glucose (80-110) mg/dL Calcium (8.4-10.2) mg/dL Total Bilirubin (0.2-1.3) mg/dL AST (14-36) IU/L ALT (<35) IU/L Alkaline Phosphatase (38-126) U/L Total Creatine Kinase (30-135) U/L CK-MB (CK-2) CK-MB (CK-2) Rel Index Troponin I (0.01-0.034) ng/mL NT-Pro-B Natriuret Pep (<125) pg/mL Total Protein (6.3-8.2) g/dL Albumin (3.5-5.0) g/dL Globulin (1.7-4.1) g/dL Albumin/Globulin Ratio (1.0-2.8) Lipase (23-300) U/L SARS-CoV-2 (PCR) Negative (Negative) Imaging Data Chest x-ray: Radiologist's Impression: [address] [address] XRay Report Signed Patient: Irene Summers MR#: [id number] : 1960 Acct:[id number] Age/Sex: 60 / F Date of Service: 03/07/21 Loc: ED Accession Number: [id number] ?? Procedure: XR chest 1V Ordering Provider: Ronnie Haider D.O. PROCEDURE:? XR CHEST 1V ? INDICATIONS:? Flu like symptoms ? TECHNIQUE:? One view of the chest was acquired.? ? COMPARISON:? [facility], CR, XR CHEST 2V, 09/12/2019, 14:37. ? FINDINGS:? ? Surgical changes and devices:? None.? ? Lungs and pleura:? Lungs are clear.? No pleural effusions or pneumothorax.? ? Mediastinum:? Mediastinal contours appear normal.? Heart size appears prominent.? ? Bones and chest wall:? No suspicious bony lesions.? Overlying soft tissues appear unremarkable.? ? IMPRESSION:? No acute cardiopulmonary abnormality identified. ? ? ? Dictated by: Clement Rebollar M.D. on 03/07/2021 at 15:27 ? ? Approved by: Clement Rebollar M.D. on 03/07/2021 at 15:28? ECG Data Attestation: I personally reviewed and interpreted this ECG as follows: Prior ECG tracings: available for review Interpretation: Sinus rhythm Ventricular rate of 71 Normal axis Normal QRS Normal QTC No ST T wave changes MDM Narrative Medical decision making narrative: Patient's labs are unremarkable, chest x-ray is unremarkable, vital signs are unremarkable, have low suspicion for CVA. Low suspicion for TIA. Low suspicion for ACS. Patient has multiple times for pain medication. We did give her Tylenol. She tolerated oral medications without problems. Patient became upset. Informed her that her chronic pain issues need to be managed by her primary care provider. Informed her that she would not be receiving opioid pain medication here in the ER but we could try other nonopioid treatments to include Tylenol/ibuprofen for her body aches she stated that she was not having body aches. I reminded her that she told me that she had ?pain all over she stated that the pain that she was having has not body ache pain.. She brought up that ?every time I come to the ER I decline the pain medications ?she stated that she does not like taking opioid pain medication. I informed her that the only other option would that be Tylenol and ibuprofen but then she again stated these medicines do not work for her. I informed her that there was nothing more that I could offer her an to the emergency department. We did discuss her lab results. Patient became upset and asked to be discharged. Discharge Plan Departure Patient Disposition: Home Clinical Impression: Body aches, Dehydration Instructions: DI for Dehydration -- Adult Activity Restrictions/Additional Instructions: I recommend you continue all of your medications as directed. Be sure to increase your fluid intake and use your nausea medicine as directed. You can take Tylenol and/or ibuprofen for any body aches or fevers. Contact your primary doctor for a follow-up. Prescriptions: No Action Incontinence Supplies See Rx Instructions Not Applicable PRN PRN (Reason: incontinence) Qty: 130 RF: 0 (DME) rubber gloves Qty: 200 RF: 2 metoprolol succinate 50 mg tablet extended release 24 hr 50 mg PO DAILY Qty: 90 RF: 3 estradiol 1 mg tablet 1 mg PO DAILY Qty: 90 RF: 1 methocarbamol 750 mg tablet 750 mg PO TID PRN (Reason: muscle pain) Qty: 90 RF: 5 trazodone 300 mg tablet 300 mg PO BEDTIME Qty: 90 RF: 3 promethazine 25 mg tablet 25 mg PO DAILY PRN (Reason: nausea and vomiting) Qty: 30 RF: 5 omeprazole 20 mg capsule,delayed release(DR/EC) 20 mg PO DAILY Qty: 90 RF: 2 duloxetine 30 mg capsule,delayed release(DR/EC) 30 mg PO DAILY Qty: 90 RF: 1 clonazepam 1 mg tablet 1 mg PO BEDTIME PRN (Reason: anxiety) Qty: 30 RF: 0 multivitamin tablet 1 tab PO DAILY RF: 0 B Complex Plus Vitamin C 80-58-15-5-300 mg capsule 1 cap PO DAILY RF: 0 Referrals: Tyree Ardon MD [Primary Care Provider] -
[2021-03-07 14:52] LABS: Alanine Aminotransferase 16 IU/L (<35); Albumin 5.1 g/dL (3.5-5.0); Albumin Globulin Ratio 1.2 (1.0-2.8); Alkaline Phosphatase 73 U/L (38-126); Aspartate Aminotransferase 31 IU/L (14-36); BUN Creatinine Ratio 16.7 (6-22); Bilirubin Total 0.7 mg/dL (0.2-1.3); Blood Urea Nitrogen 12 mg/dL (7-17); Calcium 8.9 mg/dL (8.4-10.2); Carbon Dioxide 26 mmol/L (22-32); Chloride 103 mmol/L (98-107); Estimated Glomerular Filt Rate > 60.0 mL/min (>60); Globulin 4.3 g/dL (1.7-4.1); Glucose 100 mg/dL (80-110); HEMOLYSIS 30 (0-50); Lipase 83 U/L (23-300); Potassium 3.1 mmol/L (3.4-5.1); Sodium 142 mmol/L (137-145); Total Protein 9.4 g/dL (6.3-8.2)
[2021-03-07 14:53] LABS: COVID19 -Nasal RAPID Negative (Negative)
--- NOTE | 2021-03-07 15:06 | DI.RAD.S_ITS ---
PROCEDURE: XR CHEST 1V INDICATIONS: Flu like symptoms TECHNIQUE: One view of the chest was acquired. COMPARISON: [facility], CR, XR CHEST 2V, 09/12/2019, 14:37. FINDINGS: Surgical changes and devices: None. Lungs and pleura: Lungs are clear. No pleural effusions or pneumothorax. Mediastinum: Mediastinal contours appear normal. Heart size appears prominent. Bones and chest wall: No suspicious bony lesions. Overlying soft tissues appear unremarkable. IMPRESSION: No acute cardiopulmonary abnormality identified. Dictated by: Clement Rebollar M.D. on 03/07/2021 at 15:27 Approved by: Clement Rebollar M.D. on 03/07/2021 at 15:28
[2021-03-07 15:13] LABS: Creatine Kinase 59 U/L (30-135)
[2021-03-07 15:26] LABS: NT-proBNP (BNP-Adult 18+) 200 pg/mL (<125); Troponin I < 0.012 ng/mL (0.01-0.034)
[2021-03-07] MEDS: ACETAMINOPHEN 325 MG TABLET 650 MG PO (15:44)
--- NOTE | 2021-03-07 15:46 | PC.NURSE ---
Patient reluctant to take tylenol I could be doing this at home, they don't work and nothing stays down Prior to administration of tylenol patient denied nausea. Reassured patient if the tylenol stays down and pain is unrelieved then we can readdress her pain at that time. Patient requesting to speak to Dr. Dr Haider Aware,
--- NOTE | 2021-03-07 16:08 | PC.NURSE ---
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 Offered comfort measures to patient. Patient wanting different medications for pain.
--- NOTE | 2021-03-07 16:12 | PC.NURSE ---
N/V/D report generalized pain to touch. No new acute SOB. Reports cold sweats.
== END 2021-03-07 16:44 | disposition home or self-care (01) ==
PROVIDERS: Emergency Provider Emergency Medicine; Family Provider Student in an Organized Health Care Education/Training Program; PCP Student in an Organized Health Care Education/Training Program
DX: E86.0 Dehydration (principal); R52 Pain, unspecified; R11.2 Nausea with vomiting, unspecified; Z20.822 Contact with and (suspected) exposure to COVID-19
CPT/HCPCS: 36415; 71045; 80053; 82550; 83690; 83880; 84484; 85025; 87635; 93005; 93010; 96361; 96374; 99284; C9803; J2405

== ENCOUNTER → 2021-05-27 10:43 | Outpatient (CLI) | payer OTHER, MEDICAID, SELFPAY ==
[2021-05-27 13:49] LABS: COVID19 -Nasal RAPID Negative (Negative)
== END ==
PROVIDERS: Family Provider Student in an Organized Health Care Education/Training Program; PCP Student in an Organized Health Care Education/Training Program; Referring Provider Internal Medicine; Visit Provider Internal Medicine
DX: Z20.822 Contact with and (suspected) exposure to COVID-19 (principal)
CPT/HCPCS: 87635; C9803

== ENCOUNTER → 2021-05-27 10:44 | Outpatient (CLI) | payer OTHER, MEDICAID, SELFPAY ==
--- NOTE | 2021-06-01 09:53 | PM.PFT.1 ---
Pulmonary Function Test Referral & Results Date Patient Seen: 05/27/21 Requesting provider: Tyree Ardon Indication: Dyspnea, cough Results: The spirometry demonstrates an FVC of 2.34 L which is 72% of predicted. The FEV1 was measured at 1.79 L which is 71% of predicted. The FEV1/FVC ratio was 77 which is 98% of predicted. Following the administration of bronchodilator there was a 15% improvement in FEV1 and a 71% improvement in FEF 25-75% Lung volumes show an SVC of 2.63 L which is 86% of predicted. The diffusing capacity was measured at 17.95 which is 73% of predicted. No hemoglobin value was provided, so no correction for potential anemia could be made, if appropriate. The maximum voluntary ventilation was reduced Interpretation: This study demonstrates possible mild obstructive lung disease based on reduction FEV1 although FEV1/FVC ratio was preserved there is evidence of benefit after bronchodilator both in FEV1 and more prominently in small airway flow based on improvement in FEF 25-75% as above There is evidence of minimal restrictive lung disease with minimal reduction SVC There is also evidence of some disease at the capillary alveolar level based on minimal reduction in diffusing capacity as above Clinical correlation suggested
== END ==
PROVIDERS: Family Provider Student in an Organized Health Care Education/Training Program; PCP Student in an Organized Health Care Education/Training Program; Referring Provider Student in an Organized Health Care Education/Training Program; Visit Provider Student in an Organized Health Care Education/Training Program
DX: R06.00 Dyspnea, unspecified (principal); R05.9 Cough, unspecified; F17.200 Nicotine dependence, unspecified, uncomplicated; Z20.822 Contact with and (suspected) exposure to COVID-19; J98.8 Other specified respiratory disorders
CPT/HCPCS: 87635; 94060; 94726; 94729; C9803

== ENCOUNTER 2022-05-30 13:50 | Emergency (ER) | payer OTHER, MEDICAID, SELFPAY ==
[2022-05-30] VITALS (21 sets, daily range): BP systolic 139–180; BP diastolic 78–89; PULSE 67–81; RESP 15–23; TEMP 36.9–37.1; O2SAT 94–100; BMI 26.6
--- NOTE | 2022-05-30 14:17 | DI.RAD.S_ITS ---
PROCEDURE: XR CHEST 1V INDICATIONS: suspected sepsis TECHNIQUE: One view of the chest was acquired. COMPARISON: [facility], CR, XR CHEST 1V, 03/07/2021, 15:08. [facility], CR, XR CHEST 2V, 09/12/2019, 14:37. FINDINGS: Surgical changes and devices: Cholecystectomy clips. Lungs and pleura: Lungs are clear. No pleural effusions or pneumothorax. Mediastinum: Mediastinal contours appear normal. Heart size is normal. Bones and chest wall: No suspicious bony lesions. Overlying soft tissues appear unremarkable. IMPRESSION: No acute cardiopulmonary abnormality. Dictated by: Clement Rebollar M.D. on 05/30/2022 at 14:59 Approved by: Clement Rebollar M.D. on 05/30/2022 at 15:00
--- NOTE | 2022-05-30 14:17 | DI.CT.S_ITS ---
PROCEDURE: CT ANGIO HEAD AND NECK INDICATIONS: confusion since Sunday. TECHNIQUE: Pre-contrast 4.5 mm thick sections acquired from the foramen magnum to the vertex. After the administration of intravenous contrast, 1 mm thick sections acquired from the aortic arch through the [place] of [place]. Post-contrast 4.5 mm thick sections then re-acquired from the foramen magnum to the vertex. 3-dimensional ayybtpd-kalekrtqf-osnefqfqht (MIP) and/or volume rendering reformats were acquired of the central intracranial vasculature and neck separately. For radiation dose reduction, the following was used: automated exposure control, adjustment of mA and/or kV according to patient size. COMPARISON: [facility], CR, XR CHEST 1V, 05/30/2022, 14:29. FINDINGS: Image quality: Excellent. BRAIN: CSF spaces: Ventricles are normal in size and shape. Basal cisterns are patent. No extra-axial fluid collections. Brain: There is a 1.0 x 1.0 x 1.1 centimeter ring-enhancing lesion in the left parietal lobe concerning for neoplastic process including metastatic disease. Left parietal-occipital vasogenic edema is identified in the region of the left parietal enhancing mass. No midline shift. No intracranial bleed. Obrien-white matter interface appears intact. Skull and face: Calvarium and facial bones appear intact, without suspicious lesions. Orbits appear normal. Sinuses: Sinuses and mastoids are clear. HEAD CT ANGIOGRAPHY: Anterior circulation: Intracranial internal carotid arteries are normal in size and flow. The flow within the paired anterior cerebral arteries is normal and symmetric. The flow within the middle cerebral arteries is normal and symmetric. The anterior communicating artery is seen. No aneurysms are seen. Posterior circulation: Visualized portions of the vertebral arteries demonstrate normal caliber, and join to form a normal appearing basilar artery. Flow within the posterior cerebral arteries is normal and symmetric. No aneurysms are seen. Dural sinuses demonstrate normal postcontrast enhancement. NECK CT ANGIOGRAPHY: Carotid system: The great vessels demonstrate a conventional anatomy as they arise from the aortic arch. The origins of the common carotid arteries appear patent. The common carotid arteries demonstrate normal caliber and courses. The bifurcation regions are both widely patent. The internal carotid arteries demonstrate normal calibers and courses. Posterior circulation: The origins of the vertebral arteries both appear widely patent. The more superior extracranial portions of both vertebral arteries also demonstrate normal courses and calibers. They join to form a normal appearing basilar artery. Soft tissues: Visualized neck soft tissues demonstrate no suspicious abnormalities. Partially visualized 2.3 centimeter right hilar lymph node. 1.4 centimeter subcarinal mediastinal lymph node. Partially visualized mass noted in the medial aspect of the right upper lobe. Scattered bilateral lung emphysematous changes. Bones: No suspicious bony lesions. Visualized cervical spine appears normally aligned. IMPRESSION: 1.0 x 1.0 x 1.1 centimeter ring-enhancing left parietal mass highly suspicious for neoplastic process including metastatic disease. No large vessel occlusion, hemodynamically significant vascular stenosis, vascular dissection or aneurysm. Mediastinal and right hilar lymphadenopathy concerning for metastatic disease. Partially visualized mass in the right upper lobe concerning for bronchogenic carcinoma. Recommend dedicated CT scan of the chest for additional evaluation. Findings telephoned to Dr. Nunn on May 30, 2022 at 4:07 p.m. Any quantitative measurements of stenosis were performed using NASCET criteria. Dictated by: Kim Leblanc MD, PhD on 05/30/2022 at 15:57 Approved by: Kim Leblanc MD, PhD on 05/30/2022 at 16:09
[2022-05-30 14:43] LABS: Add Manual Diff / Slide Review NO; Basophils Absolute Auto 100 /uL (0-100); Basophils Percent Auto 1.1 % (0-2); Eosinophils Absolute Auto 0 /uL (0-450); Eosinophils Percent Auto 0.2 % (2-4); Hemoglobin 12.3 g/dL (12.0-16.0); Lymphocytes Absolute Auto 1500 /uL (1100-4500); Lymphocytes Percent Auto 22.2 % (25-40); Mean Corpuscular HGB Conc 33.1 % (30-36); Mean Corpuscular Hemoglobin 24.8 PG (26-34); Mean Corpuscular Volume 74.9 fL (80-100); Monocytes Absolute Auto 400 /uL (0-900); Monocytes Percent Auto 6.5 % (3-14); Neutrophils Absolute Auto 4600 /uL (1500-7000); Platelet Count 246 X10^3/uL (150-400); Red Blood Cell Count 4.94 X10^6/uL (4.0-5.2); Red Cell Distribution Width 16.2 % (11.6-14.8); White Blood Cell Count 6.6 X10^3/uL (4.5-11.0)
[2022-05-30 14:44] LABS: INR 1.1 (0.9-1.3); Prothrombin Time 12.5 SECONDS (10.1-12.7)
[2022-05-30 14:46] LABS: PTT Partial Thromboplastin Tim 33 SECONDS (26-36)
[2022-05-30 14:53] LABS: Lactate (Lactic Acid) 0.9 mmol/L (0.7-2.1)
[2022-05-30 14:55] LABS: Alanine Aminotransferase 15 IU/L (<35); Albumin 4.4 g/dL (3.5-5.0); Alkaline Phosphatase 104 U/L (38-126); Aspartate Aminotransferase 20 IU/L (14-36); BUN Creatinine Ratio 20.8 (6-22); Bilirubin Total 0.4 mg/dL (0.2-1.3); Blood Urea Nitrogen 15 mg/dL (7-17); Calcium 6.6 mg/dL (8.4-10.2); Carbon Dioxide 25 mmol/L (22-32); Chloride 102 mmol/L (98-107); Estimated Glomerular Filt Rate > 60 mL/min (>60); Globulin 4.2 g/dL (1.7-4.1); Glucose 112 mg/dL (80-110); HEMOLYSIS < 15 (0-50); Lipase 54 U/L (23-300); Sodium 142 mmol/L (137-145); Total Protein 8.6 g/dL (6.3-8.2)
[2022-05-30 15:11] LABS: Procalcitonin 0.04 ng/mL (<0.5)
--- NOTE | 2022-05-30 16:11 | ED.NEUROSD ---
HPI - Neuro Symptoms/Deficit General Chief Complaint: Neuro Symptoms/Deficit Stated Complaint: difficulty talking, rt arm pain Time Seen by Provider: 05/30/22 16:01 Source: patient Mode of arrival: Wheelchair History of Present Illness HPI Narrative: Patient is a 62-year-old female history of tobacco abuse, fibromyalgia, chronic pain, depression, hypertension presenting today with altered mental status and word-finding trouble. She lives with her daughter whom states that 3 days ago she started having difficulty getting words out she was very confused. She is not falling and no weakness numbness or tingling. She has no chest pain palpitations shortness of breath. She is not having an fever or chills. Primary history is received from daughter. Patient is not able to provide history due to severe word-finding difficulty. Related Data Home Medications Medication Instructions Recorded Confirmed multivitamin 1 tab PO DAILY 12/02/18 04/18/21 vitamin B comp and C no.3 15 mg-10 1 cap PO DAILY 06/04/19 04/18/21 mg-50 mg-5 mg-300 mg capsule (B Complex Plus Vitamin C) Boost oxygen inhalation 04/18/21 Previous Rx's Medication Instructions Recorded Incontinence Supplies See Rx Instructions Not Applicable 01/11/18 PRN PRN incontinence #130 ea rubber gloves #200 ea 09/02/19 albuterol sulfate 90 mcg/actuation 2 puff inhalation Q4H PRN 05/28/21 aerosol inhaler shortness of breath or wheezing #8.5 grams trazodone 300 mg tablet 300 mg PO BEDTIME #90 tabs 10/11/21 duloxetine 60 mg capsule,delayed 60 mg PO DAILY #90 caps 02/01/22 release estradiol 1 mg tablet 1 mg PO DAILY #90 tabs 02/01/22 metoprolol succinate 50 mg 50 mg PO DAILY #90 tabs 04/04/22 tablet,extended release 24 hr omeprazole 20 mg capsule,delayed 20 mg PO DAILY #90 caps 04/04/22 release promethazine 25 mg tablet 25 mg PO DAILY PRN nausea and 04/04/22 vomiting #30 tabs methocarbamol 750 mg tablet 750 mg PO TID PRN muscle pain #90 05/03/22 tabs dexamethasone 4 mg tablet 4 mg PO DAILY #30 tabs 05/30/22 clonazepam 1 mg tablet 1 mg PO BEDTIME PRN anxiety #30 05/31/22 tabs Allergies Allergy/AdvReac Type Severity Reaction Status Date / Time Penicillins Allergy Intermediate RASH Verified 05/30/22 14:08 tizanidine Allergy Intermediate Hives Verified 05/30/22 14:08 ketorolac Allergy Unknown Verified 05/30/22 14:08 clindamycin AdvReac Severe Nausea and Verified 05/30/22 14:08 vomiting Review of Systems Review of Systems ROS Unobtainable: Unobtainable due to medical condition Patient History Medical History (Updated 05/31/22 @ 07:29 by Tyree Ardon MD) Chronic pain syndrome (Unknown) Conversion disorder (Unknown) Depression (Unknown) Diaphragmatic hernia (Unknown) Fibromyalgia (Unknown) GERD (gastroesophageal reflux disease) (Unknown) Hypertension (Unknown) Post traumatic stress disorder (PTSD) (Unknown) Tobacco abuse Surgical History S/P total abdominal hysterectomy and bilateral salpingo-oophorectomy (1991) Status post appendectomy (1975) Status post cholecystectomy (1998) Family History Mother Cancer Social History Smoking Status: Current every day smoker second hand exposure: Yes alcohol intake: never substance use type: does not use Smoking Status: Current every day smoker alcohol intake frequency: holidays/special occasions only Substance Use Type: marijuana Exam Initial Vital Signs Initial Vital Signs: Vital Signs Temperature 98.8 F 05/30/22 14:09 Pulse Rate 80 05/30/22 14:09 Respiratory Rate 15 05/30/22 14:09 Blood Pressure 142/89 H 05/30/22 14:09 Pulse Oximetry 95 05/30/22 14:09 Oxygen Delivery Method 05/30/22 14:09 GENERAL: Alert 62-year-old female no acute distress HEENT: Head atraumatic,EOMI, pupils reactive, face symmetric, moist mucous membranes CARDIOVASCULAR: Regular rate and rhythm without murmurs, rubs or gallops. RESPIRATORY: Breath sounds equal bilaterally, no wheezes rales or rhonchi. ABDOMEN: Soft, nontender. Normoactive bowel sounds all 4 quadrants. No guarding or rebound. EXTREMITIES: Normal range of motion, no clubbing or edema. Neurovascularly intact NEUROLOGICAL: No facial droop bilateral ataxia with [id number] difficulty finding words bilateral ataxia tsbr-[id number] strength is equal in all extremities no significant word slurring SKIN: Warm, dry, no laceration, no petechiae, no rashes or lesions. Course Orders Ordered: Discontinued Medications Dexamethasone (Dexamethasone 4 Mg/Ml Vial) 4 mg IV NOW ONE Stop: 05/30/22 20:19 Last Admin: 05/30/22 20:25 Dose: 4 mg Documented By: RB Sodium Chloride (Normal Saline 0.9%) 1,000 mls @ 1,000 mls/hr IV BOLUS ONE Stop: 05/30/22 15:16 Last Infusion: 05/30/22 17:58 Dose: 0 mls/hr Documented By: Infusion: 05/30/22 17:10 Dose: 1,000 mls/hr Documented By: Infusion: 05/30/22 16:40 Dose: 0 mls/hr Documented By: Admin: 05/30/22 16:14 Dose: 1,000 mls/hr Documented By: RB Lorazepam (Lorazepam 0.5 Mg Tablet) 1 mg PO NOW ONE Stop: 05/30/22 20:19 Last Admin: 05/30/22 20:25 Dose: 1 mg Documented By: RB Vital Signs Vital signs: Vital Signs - 8 hr 05/30/22 14:09 05/30/22 15:34 05/30/22 15:37 Temperature 98.8 F Pulse Rate 80 78 Respiratory Rate 15 22 Blood Pressure 142/89 H 180/89 H Pulse Oximetry 95 99 Oxygen Delivery Method Room Air 05/30/22 15:37 05/30/22 15:45 05/30/22 16:00 Temperature Pulse Rate 73 72 72 Respiratory Rate 23 20 21 Blood Pressure Pulse Oximetry 99 96 96 Oxygen Delivery Method 05/30/22 16:01 05/30/22 16:01 05/30/22 16:03 Temperature Pulse Rate 70 Respiratory Rate 20 Blood Pressure 151/86 H 139/78 Pulse Oximetry 96 Oxygen Delivery Method 05/30/22 16:03 05/30/22 16:15 05/30/22 16:16 Temperature Pulse Rate 73 69 69 Respiratory Rate 23 17 Blood Pressure Pulse Oximetry 94 98 97 Oxygen Delivery Method 05/30/22 16:16 05/30/22 16:30 05/30/22 16:30 Temperature Pulse Rate 74 Respiratory Rate Blood Pressure 156/83 H 170/89 H Pulse Oximetry 98 Oxygen Delivery Method 05/30/22 17:06 05/30/22 17:15 05/30/22 17:30 Temperature Pulse Rate 72 72 75 Respiratory Rate 19 20 Blood Pressure Pulse Oximetry 95 98 98 Oxygen Delivery Method 05/30/22 17:45 05/30/22 18:03 05/30/22 18:15 Temperature Pulse Rate 74 67 71 Respiratory Rate 17 Blood Pressure Pulse Oximetry 99 100 Oxygen Delivery Method MDM - Neuro Symptoms/Deficit Lab Data Result diagrams: 05/30/22 14:25 05/30/22 14:25 Labs: Lab Results 05/30/22 05/30/22 05/30/22 Range/Units 14:25 14:25 14:25 WBC 6.6 (4.5-11.0) X10^3/uL RBC 4.94 (4.0-5.2) X10^6/uL Hgb 12.3 (12.0-16.0) g/dL Hct 37.0 (36-46) % MCV 74.9 L (80-100) fL MCH 24.8 L (26-34) PG MCHC 33.1 (30-36) % RDW 16.2 H (11.6-14.8) % Plt Count 246 (150-400) X10^3/uL Neut % (Auto) 70.0 (50-75) % Lymph % (Auto) 22.2 L (25-40) % [place] % (Auto) 6.5 (3-14) % Eos % (Auto) 0.2 L (2-4) % Baso % (Auto) 1.1 (0-2) % Neut # (Auto) 4600 (6390-9425) /uL Lymph # (Auto) 1500 (3158-5778) /uL [place] # (Auto) 400 (0-900) /uL Eos # (Auto) 0 (0-450) /uL Baso # (Auto) 100 (0-100) /uL PT 12.5 (10.1-12.7) SECONDS INR 1.1 (0.9-1.3) APTT 33 (26-36) SECONDS Sodium 142 (137-145) mmol/L Potassium 3.0 L (3.4-5.1) mmol/L Chloride 102 (98-107) mmol/L Carbon Dioxide 25 (22-32) mmol/L BUN 15 (7-17) mg/dL Creatinine 0.72 (0.52-1.04) mg/dL Estimated GFR > 60 (>60) mL/min BUN/Creatinine Ratio 20.8 (6-22) Glucose 112 H (80-110) mg/dL Lactate (0.7-2.1) mmol/L Calcium 6.6 L (8.4-10.2) mg/dL Total Bilirubin 0.4 (0.2-1.3) mg/dL AST 20 (14-36) IU/L ALT 15 (<35) IU/L Alkaline Phosphatase 104 (38-126) U/L Total Protein 8.6 H (6.3-8.2) g/dL Albumin 4.4 (3.5-5.0) g/dL Globulin 4.2 H (1.7-4.1) g/dL Albumin/Globulin Ratio 1.0 (1.0-2.8) Lipase 54 (23-300) U/L Procalcitonin 0.04 (<0.5) ng/mL Urine RBC (0-5/HPF) Urine WBC (0-5/HPF) Ur Squamous Epith Cells (0-5/HPF) Urine Bacteria (None) 05/30/22 05/30/22 Range/Units 14:25 16:00 WBC (4.5-11.0) X10^3/uL RBC (4.0-5.2) X10^6/uL Hgb (12.0-16.0) g/dL Hct (36-46) % MCV (80-100) fL MCH (26-34) PG MCHC (30-36) % RDW (11.6-14.8) % Plt Count (150-400) X10^3/uL Neut % (Auto) (50-75) % Lymph % (Auto) (25-40) % [place] % (Auto) (3-14) % Eos % (Auto) (2-4) % Baso % (Auto) (0-2) % Neut # (Auto) (1180-1661) /uL Lymph # (Auto) (8323-2413) /uL [place] # (Auto) (0-900) /uL Eos # (Auto) (0-450) /uL Baso # (Auto) (0-100) /uL PT (10.1-12.7) SECONDS INR (0.9-1.3) APTT (26-36) SECONDS Sodium (137-145) mmol/L Potassium (3.4-5.1) mmol/L Chloride (98-107) mmol/L Carbon Dioxide (22-32) mmol/L BUN (7-17) mg/dL Creatinine (0.52-1.04) mg/dL Estimated GFR (>60) mL/min BUN/Creatinine Ratio (6-22) Glucose (80-110) mg/dL Lactate 0.9 (0.7-2.1) mmol/L Calcium (8.4-10.2) mg/dL Total Bilirubin (0.2-1.3) mg/dL AST (14-36) IU/L ALT (<35) IU/L Alkaline Phosphatase (38-126) U/L Total Protein (6.3-8.2) g/dL Albumin (3.5-5.0) g/dL Globulin (1.7-4.1) g/dL Albumin/Globulin Ratio (1.0-2.8) Lipase (23-300) U/L Procalcitonin (<0.5) ng/mL Urine RBC 0-1/hpf (0-5/HPF) Urine WBC 5-10/hpf H (0-5/HPF) Ur Squamous Epith Cells 5-10 /hpf H (0-5/HPF) Urine Bacteria Occasional (0-1) (None) Urine Dip Bedside Urine Glucose Negative Bedside Urine Bilirubin - Negative Bedside Urine Ketone - Negative Urine Specific [place] 1.020 Bedside Urine Occult Blood - Negative Bedside Urine pH 6.0 Bedside Urine Protein + 30 Bedside Urine Urobilinogen - Negative Bedside Urine Nitrite - Negative Bedside Urine Leukocytes - Negative Esterase Imaging Data CTA - brain/neck: Radiologist's Impression: CT Scan Report Signed Patient: Irene Summers MR#: [id number] : 1960 Acct:[id number] Age/Sex: 62 / F Date of Service: 05/30/22 Loc: ED Accession Number: [id number] ?? Procedure: CT angio head and neck Ordering Provider: Marline Nunn D.O. PROCEDURE:? CT ANGIO HEAD AND NECK ? INDICATIONS:? confusion since Sunday. ? TECHNIQUE:? Pre-contrast 4.5 mm thick sections acquired from the foramen magnum to the vertex.? After the administration of intravenous contrast, 1 mm thick sections acquired from the aortic arch through the [place] of [place].? Post-contrast 4.5 mm thick sections then re-acquired from the foramen magnum to the vertex.? 3-dimensional sfvvwqe-jjncooawm-numpzsszby (MIP) and/or volume rendering reformats were acquired of the central intracranial vasculature and neck separately. For radiation dose reduction, the following was used:? automated exposure control, adjustment of mA and/or kV according to patient size.? ? COMPARISON:? [facility], CR, XR CHEST 1V, 05/30/2022, 14:29. ? FINDINGS:? Image quality:? Excellent.? ? BRAIN:? CSF spaces:? Ventricles are normal in size and shape.? Basal cisterns are patent.? No extra-axial fluid collections.? ? Brain:? There is a 1.0 x 1.0 x 1.1 centimeter ring-enhancing lesion in the left parietal lobe concerning for neoplastic process including metastatic disease.? Left parietal-occipital vasogenic edema is identified in the region of the left parietal enhancing mass.? No midline shift.? No intracranial bleed.? Obrien-white matter interface appears intact.? ? Skull and face:? Calvarium and facial bones appear intact, without suspicious lesions.? Orbits appear normal.? ? Sinuses:? Sinuses and mastoids are clear.? ? HEAD CT ANGIOGRAPHY:? Anterior circulation:? Intracranial internal carotid arteries are normal in size and flow.? The flow within the paired anterior cerebral arteries is normal and symmetric.? The flow within the middle cerebral arteries is normal and symmetric.? The anterior communicating artery is seen.? No aneurysms are seen.? ? Posterior circulation:? Visualized portions of the vertebral arteries demonstrate normal caliber, and join to form a normal appearing basilar artery.? Flow within the posterior cerebral arteries is normal and symmetric.? No aneurysms are seen. ? Dural sinuses demonstrate normal postcontrast enhancement. ? ? NECK CT ANGIOGRAPHY:? Carotid system:? The great vessels demonstrate a conventional anatomy as they arise from the aortic arch.? The origins of the common carotid arteries appear patent.? The common carotid arteries demonstrate normal caliber and courses.? The bifurcation regions are both widely patent.? The internal carotid arteries demonstrate normal calibers and courses.? ? Posterior circulation:? The origins of the vertebral arteries both appear widely patent.? The more superior extracranial portions of both vertebral arteries also demonstrate normal courses and calibers.? They join to form a normal appearing basilar artery.? ? Soft tissues:? Visualized neck soft tissues demonstrate no suspicious abnormalities.? Partially visualized 2.3 centimeter right hilar lymph node.? 1.4 centimeter subcarinal mediastinal lymph node.? Partially visualized mass noted in the medial aspect of the right upper lobe.? Scattered bilateral lung emphysematous changes.? ? Bones:? No suspicious bony lesions.? Visualized cervical spine appears normally aligned.? IMPRESSION:? ? 1.0 x 1.0 x 1.1 centimeter ring-enhancing left parietal mass highly suspicious for neoplastic process including metastatic disease. ? No large vessel occlusion, hemodynamically significant vascular stenosis, vascular dissection or aneurysm. ? Mediastinal and right hilar lymphadenopathy concerning for metastatic disease. ? Partially visualized mass in the right upper lobe concerning for bronchogenic carcinoma.? Recommend dedicated CT scan of the chest for additional evaluation. ? Findings telephoned to Dr. Nunn on May 30, 2022 at 4:07 p.m. ? Any quantitative measurements of stenosis were performed using NASCET criteria.? ? ? Dictated by: Kim Leblanc MD, PhD on 05/30/2022 at 15:57 ?? Chest x-ray: Radiologist's Impression: XRay Report Signed Patient: Irene Summers MR#: [id number] : 1960 Acct:[id number] Age/Sex: 62 / F Date of Service: 05/30/22 Loc: ED Accession Number: [id number] ?? Procedure: XR chest 1V Ordering Provider: Marline Nunn D.O. PROCEDURE:? XR CHEST 1V ? INDICATIONS:? suspected sepsis ? TECHNIQUE:? One view of the chest was acquired.? ? COMPARISON:? [facility], CR, XR CHEST 1V, 03/07/2021, 15:08.? [facility], CR, XR CHEST 2V, 09/12/2019, 14:37. ? FINDINGS:? ? Surgical changes and devices:? Cholecystectomy clips. ? Lungs and pleura:? Lungs are clear.? No pleural effusions or pneumothorax.? ? Mediastinum:? Mediastinal contours appear normal.? Heart size is normal.? ? Bones and chest wall:? No suspicious bony lesions.? Overlying soft tissues appear unremarkable.? ? IMPRESSION:? No acute cardiopulmonary abnormality. ? ? ? Dictated by: Clement Rebollar M.D. on 05/30/2022 at 14:59 MR brain: Radiologist's Impression: Magnetic Resonance Report Signed Patient: Irene Summers MR#: [id number] : 1960 Acct:[id number] Age/Sex: 62 / F Date of Service: 05/30/22 Loc: ED Accession Number: [id number] ?? Procedure: MR head/brain wo con Ordering Provider: Marline Nunn D.O. PROCEDURE:? MR HEAD/BRAIN WO CON ? INDICATIONS:? brain mass ? TECHNIQUE:? Noncontrast axial T1 spin echo, axial T2 fast spin echo, sagittal and axial FLAIR, coronal T2 fast spin echo, axial gradient echo, axial diffusion and ADC through the brain.? ? COMPARISON:? [facility], CT, CT ANGIO HEAD AND NECK, 05/30/2022, 15:19.? [facility], MR, BRAIN WITHOUT CONTRAST, 02/05/2007, 10:49. ? FINDINGS:? Image quality:? Adequate.? There is motion on a few sequences..? ? CSF Spaces:? Basal cisterns are patent.? No extra-axial fluid collections.? Ventricles are normal in size and shape.? ? Brain:? 1.1 cm ring-enhancing lesion in the left posterior parietal cortex is redemonstrated with a moderate amount of surrounding vasogenic edema extending into the left occipital region.? There is no evidence of associated hemorrhage.? There is one other area of abnormal FLAIR signal measuring 1.2 cm in left frontal lobe white matter.? No corresponding enhancing focus.? Other than the ring of enhancement in the left parietal cortical lesion, there are no areas of restricted diffusion in the brain.? No other areas of abnormal enhancement or FLAIR signal. ? Skull and face:? Calvarium has normal marrow signal.? Orbits appear normal.? ? Sinuses:? Sinuses and mastoids are clear.? ? IMPRESSION:? ? 1. There is a left parietal ring-enhancing lesion measuring 1.1 cm highly suggestive of metastatic disease. ? 2. A subtle area of FLAIR signal in the left frontal white matter is nonspecific, but there are no other classic areas of chronic microvascular ischemic change. ? 3. No other areas of enhancement in the brain.? ? ? Dictated by: Millie Parish M.D. on 05/30/2022 at 17:48 ? CT scan - chest: Radiologist's Impression: CT Scan Report Signed Patient: Irene Summers MR#: [id number] : 1960 Acct:[id number] Age/Sex: 62 / F Date of Service: 05/30/22 Loc: ED Accession Number: [id number] ?? Procedure: CT chest abd pel w con Ordering Provider: Marline Nunn D.O. PROCEDURE:? CT CHEST ABD PEL W CON ? INDICATIONS:? brain mass ? TECHNIQUE:? After the administration of oral and intravenous contrast, axial sections acquired from the supraclavicular neck to the pubic symphysis.? Coronal and sagittal reformats were performed.? For radiation dose reduction, the following was used:? automated exposure control, adjustment of mA and/or kV according to patient size.? ? COMPARISON: ? None. ? FINDINGS:? Image quality:? Excellent.? ? CHEST: Lower Neck:? Mild right paratracheal adenopathy above the thoracic inlet.? There is circumferential wall thickening of the brachiocephalic trunk. Thyroid: Partially imaged and the visible portion is grossly normal. Axillae: No enlarged lymph nodes. Chest Wall:? Unremarkable.? ? Lungs and Airways:? There are mild emphysematous changes.? There is a solid lung mass in the medial superior segment right lower lobe measuring about 4.8 x 4.3 cm.? There is also masslike opacity involving the posteromedial aspect of the right upper lobe.? Minor lingular and right middle lobe atelectasis.? Mild diffuse bronchial wall thickening.? Pleura: No pneumothorax or pleural effusions.? ? Heart: Heart size is normal.? No pericardial effusion. Thoracic Vessels:? Ascending thoracic aorta is normal size.? Mildly dilated pulmonary outflow tract at 3.2 cm. Mediastinum and Rashmi:? There is right hilar and right mediastinal adenopathy.? Subcarinal lymph node measures 1.5 cm in short axis. Esophagus: No wall thickening.? Tiny hiatal hernia. ? ? ABDOMEN: Liver:? Two hypodensities in the liver are likely cysts.? The largest measures about 2.2 cm. Gallbladder:? Surgically absent Biliary ducts:? Mildly dilated, appropriate post cholecystectomy. Pancreas:? Normal. Spleen:? Normal. Adrenal Glands:? No nodules. Kidneys and Ureters:? Normal. ? Stomach and Bowel:? The gastric wall is thickened with coarse rugal folds.? Small bowel and colon are within normal limits. Peritoneum:? No abnormal intraperitoneal fluid.? No free air.? ? Ventral Wall: ? No hernia.? Abdominal Nodes:? No retroperitoneal or mesenteric adenopathy by size criteria.? Vessels:? Aorta and inferior vena cava are normal in size.? ? PELVIS: Pelvic Organs:? Post hysterectomy. Bladder:? Normal wall thickness. Pelvic Nodes: No enlarged lymph nodes.? Miscellaneous: No inguinal hernias are seen. ? ? ? Bones:? Unremarkable.? ? ? IMPRESSION:? ? 1.? Right lower lobe lung mass, probably primary neoplasm with associated right hilar and mediastinal adenopathy. ? 2.? Mild emphysema and probable secondary pulmonary artery hypertension. ? 3.? Circumferential wall thickening around the brachiocephalic artery.? Consider vasculitis.? Correlate clinically. ? 4. Nonspecific gastric wall thickening. ? 5. No definite adenopathy or soft tissue mass below the diaphragm.? Dictated by: Millie Parish M.D. on 05/30/2022 at 17:17 ? ? ECG Data Interpretation: Normal sinus rhythm normal sinus rhythm rate 72 NE interval 170 QRS [address] changes no T-wave inversions similar to previous EKGs MDM Narrative Medical decision making narrative: Patient presented with stroke-like symptoms but out of the window for tPA CT angio found left parietal ring-enhancing lesion concerning for metastatic disease. That port CT chest abdomen pelvis and brain MRI were ordered. Probable primary lung mass is seen on the chest CT. Patient has no significant swelling or midline shift on head CT. He is eating drinking she has good family support. I spoke with Dr. Tyson on-call for PCP in regards to new diagnosis concerning for metastatic lung cancer to brain and need for urgent referral to Oncology and close outpatient follow-up. Dr. Cummings on-call oncologist has been updated patient's symptoms test results patient will likely need a bronchoscopy for tissue biopsy based on mass agrees with oral dexamethasone 4 mg once daily for brain edema. At this time patient has good family support help to take care of her, outpatient referrals have been made and patient can be discharged home Discharge Plan Departure Patient Disposition: Home Clinical Impression: Lung cancer metastatic to brain Instructions: Lung Cancer Activity Restrictions/Additional Instructions: I am sorry to report that you have a high probability of metastatic lung cancer. You will need further testing biopsy and evaluation by Oncology. I have called for you. Expect to hear from Oncology this week. *Continue to take medications as directed Dexamethasone 4 mg once daily -- sent to [facility] *Follow up with your primary care provider in 2-3 days or call [phone] Dr. Leslie, call office tomorrow or the next day if you do not hear from them *Return to ER if you should have seizures, increased confusion inability to eat or drink, not moving extremities, increasing shortness of breath or any new, worsening or concerning symptoms Prescriptions: New dexamethasone 4 mg tablet 4 mg PO DAILY Qty: 30 0RF No Action Incontinence Supplies See Rx Instructions Not Applicable PRN PRN (Reason: incontinence) Qty: 130 0RF Dose Instruction: Not Applicable PRN PRN; Rx Instructions: Use incontinence pads when needed. (DME) rubber gloves Qty: 200 2RF Rx Instructions: As directed albuterol sulfate 90 mcg/actuation HFA aerosol inhaler 2 puff inhalation Q4H PRN (Reason: shortness of breath or wheezing) Qty: 8.5 11RF trazodone 300 mg tablet 300 mg PO BEDTIME Qty: 90 2RF duloxetine 60 mg capsule,delayed release(DR/EC) 60 mg PO DAILY Qty: 90 1RF estradiol 1 mg tablet 1 mg PO DAILY Qty: 90 3RF promethazine 25 mg tablet 25 mg PO DAILY PRN (Reason: nausea and vomiting) Qty: 30 11RF omeprazole 20 mg capsule,delayed release(DR/EC) 20 mg PO DAILY Qty: 90 2RF Rx Instructions: swallow whole; do not crush, chew, dissolve, cut, break metoprolol succinate 50 mg tablet extended release 24 hr 50 mg PO DAILY Qty: 90 2RF methocarbamol 750 mg tablet 750 mg PO TID PRN (Reason: muscle pain) Qty: 90 5RF clonazepam 1 mg tablet 1 mg PO BEDTIME PRN (Reason: anxiety) Qty: 30 0RF Boost oxygen inhalation multivitamin tablet 1 tab PO DAILY B Complex Plus Vitamin C 12-91-25-5-300 mg capsule 1 cap PO DAILY Referrals: Tyree Ardon MD [Primary Care Provider] - Uriel Leslie MD [Physician] - Visit Report Forms: Patient Portal/API
[2022-05-30] MEDS: SODIUM CHLORIDE 0.9% 1,000 ML 1000 ML IV (16:14)
--- NOTE | 2022-05-30 16:24 | DI.MRI.S_ITS ---
PROCEDURE: MR HEAD/BRAIN WO CON INDICATIONS: brain mass TECHNIQUE: Noncontrast axial T1 spin echo, axial T2 fast spin echo, sagittal and axial FLAIR, coronal T2 fast spin echo, axial gradient echo, axial diffusion and ADC through the brain. COMPARISON: [facility], CT, CT ANGIO HEAD AND NECK, 05/30/2022, 15:19. [facility], MR, BRAIN WITHOUT CONTRAST, 02/05/2007, 10:49. FINDINGS: Image quality: Adequate. There is motion on a few sequences.. CSF Spaces: Basal cisterns are patent. No extra-axial fluid collections. Ventricles are normal in size and shape. Brain: 1.1 cm ring-enhancing lesion in the left posterior parietal cortex is redemonstrated with a moderate amount of surrounding vasogenic edema extending into the left occipital region. There is no evidence of associated hemorrhage. There is one other area of abnormal FLAIR signal measuring 1.2 cm in left frontal lobe white matter. No corresponding enhancing focus. Other than the ring of enhancement in the left parietal cortical lesion, there are no areas of restricted diffusion in the brain. No other areas of abnormal enhancement or FLAIR signal. Skull and face: Calvarium has normal marrow signal. Orbits appear normal. Sinuses: Sinuses and mastoids are clear. IMPRESSION: 1. There is a left parietal ring-enhancing lesion measuring 1.1 cm highly suggestive of metastatic disease. 2. A subtle area of FLAIR signal in the left frontal white matter is nonspecific, but there are no other classic areas of chronic microvascular ischemic change. 3. No other areas of enhancement in the brain. Dictated by: Millie Parish M.D. on 05/30/2022 at 17:48 Approved by: Millie Parish M.D. on 05/30/2022 at 17:58
--- NOTE | 2022-05-30 16:24 | DI.CT.S_ITS ---
PROCEDURE: CT CHEST ABD PEL W CON INDICATIONS: brain mass TECHNIQUE: After the administration of oral and intravenous contrast, axial sections acquired from the supraclavicular neck to the pubic symphysis. Coronal and sagittal reformats were performed. For radiation dose reduction, the following was used: automated exposure control, adjustment of mA and/or kV according to patient size. COMPARISON: None. FINDINGS: Image quality: Excellent. CHEST: Lower Neck: Mild right paratracheal adenopathy above the thoracic inlet. There is circumferential wall thickening of the brachiocephalic trunk. Thyroid: Partially imaged and the visible portion is grossly normal. Axillae: No enlarged lymph nodes. Chest Wall: Unremarkable. Lungs and Airways: There are mild emphysematous changes. There is a solid lung mass in the medial superior segment right lower lobe measuring about 4.8 x 4.3 cm. There is also masslike opacity involving the posteromedial aspect of the right upper lobe. Minor lingular and right middle lobe atelectasis. Mild diffuse bronchial wall thickening. Pleura: No pneumothorax or pleural effusions. Heart: Heart size is normal. No pericardial effusion. Thoracic Vessels: Ascending thoracic aorta is normal size. Mildly dilated pulmonary outflow tract at 3.2 cm. Mediastinum and Rashmi: There is right hilar and right mediastinal adenopathy. Subcarinal lymph node measures 1.5 cm in short axis. Esophagus: No wall thickening. Tiny hiatal hernia. ABDOMEN: Liver: Two hypodensities in the liver are likely cysts. The largest measures about 2.2 cm. Gallbladder: Surgically absent Biliary ducts: Mildly dilated, appropriate post cholecystectomy. Pancreas: Normal. Spleen: Normal. Adrenal Glands: No nodules. Kidneys and Ureters: Normal. Stomach and Bowel: The gastric wall is thickened with coarse rugal folds. Small bowel and colon are within normal limits. Peritoneum: No abnormal intraperitoneal fluid. No free air. Ventral Wall: No hernia. Abdominal Nodes: No retroperitoneal or mesenteric adenopathy by size criteria. Vessels: Aorta and inferior vena cava are normal in size. PELVIS: Pelvic Organs: Post hysterectomy. Bladder: Normal wall thickness. Pelvic Nodes: No enlarged lymph nodes. Miscellaneous: No inguinal hernias are seen. Bones: Unremarkable. IMPRESSION: 1. Right lower lobe lung mass, probably primary neoplasm with associated right hilar and mediastinal adenopathy. 2. Mild emphysema and probable secondary pulmonary artery hypertension. 3. Circumferential wall thickening around the brachiocephalic artery. Consider vasculitis. Correlate clinically. 4. Nonspecific gastric wall thickening. 5. No definite adenopathy or soft tissue mass below the diaphragm. Dictated by: Millie Parish M.D. on 05/30/2022 at 17:17 Approved by: Millie Parish M.D. on 05/30/2022 at 17:28
[2022-05-30 16:27] LABS: Bacteria Urine Occasional (0-1); RBC Urine 0-1/HPF (0-5/HPF); Squamous Epithelial Cell Urine 5-10 /HPF (0-5/HPF); WBC Urine 5-10/HPF (0-5/HPF)
[2022-05-30] MEDS: DEXAMETHASONE 4 MG/ML VIAL IV (20:25)
[2022-05-30] MEDS: LORazepam 0.5 MG TABLET 1 MG PO (20:25)
== END 2022-05-30 20:46 | disposition home or self-care (01) ==
PROVIDERS: Emergency Provider Emergency Medicine; Family Provider Student in an Organized Health Care Education/Training Program; PCP Student in an Organized Health Care Education/Training Program
DX: C34.90 Malignant neoplasm of unspecified part of unspecified bronchus or lung (principal); C79.31 Secondary malignant neoplasm of brain
CPT/HCPCS: 70496; 70498; 70551; 71045; 71260; 74177; 80053; 81003; 81015; 83605; 83690; 84145; 85025; 85610; 85730; 87040; 87086; 93005; 93010; 96361; 96374; 99285; A9579; J1100; Q9967